=== PATIENT | male | born 1955 | race Caucasian/White ===

== ENCOUNTER 2023-05-16 08:29 | Inpatient (IN) | payer MEDICARE ==
[2023-05-16] MEDS ORDERED: Zofran 4 MG/2 ML VIAL IV ONE (08:56)
[2023-05-16] MEDS ORDERED: Zofran 4 MG/2 ML VIAL ONE (09:04)
[2023-05-16 09:05] LABS: Absolute Neutrophil Ct (ANC) 12.59 x10^3/uL (1.4-6.9); BASOPHIL % 0.2 % (0.0-0.4); Basophil (Absolute #) 0.03 x10^3/uL (0-0.4); Eosinophil (Absolute #) 0 x10^3/uL (0-0.5); Hematocrit 47.5 % (42-50); Hemoglobin 16.1 g/dL (12.5-18.0); IMMATURE GRAN # 0.06 x10^3u/L (0.00-0.03); IMMATURE GRAN % 0.4 % (0.00-0.4); Lymphocyte (Absolute #) 0.76 x10^3/uL (1.0-4.6); Lymphocytes % 5.3 % (24.0-44.0); Mean Cell Volume 90.5 fL (78-100); Mean Corpuscular Hemoglobin 30.7 pg (26-32); Mean Corpuscular Hgb Concent. 33.9 g/dL (32-36); Mean Platelet Volume 10.3 fL (7.5-11.0); Monocyte (Absolute #) 0.83 x10^3/uL (0.0-1.3); Monocytes % 5.8 % (0.0-12.0); Neutrophil % 88.3 % (36.0-66.0); Platelet Count 154 x10^3/uL (150-450); Red Blood Count 5.25 x10^6/uL (4.1-5.6); Red Cell Distribution Width 12.8 % (11.5-14.0); White Blood Count 14.3 x10^3/uL (4.0-10.5)
[2023-05-16] MEDS ORDERED: SUBLIMAZE 100 MCG/2 ML IV ONE ×2 (09:13→10:56)
[2023-05-16 09:18] LABS: Appearance Cloudy (Clear); Bacteria None Seen /HPF (None Seen); Bilirubin Negative (Negative); Blood Negative (Negative); Epithelial Cells None Seen /HPF (None Seen); Glucose, Urine Negative (Negative); Hyaline Casts NONE SEEN /LPF (0-2); Ketones 15 (Negative); Leukocyte Esterase Negative (Negative); Nitrite Negative (Negative); Ph 7.5 (4.6-8.0); Protein,Urine Dip Trace (Negative); RBC 0-2 /HPF (0-5); WBC 0-2 /HPF (0-5)
[2023-05-16 09:21] LABS: ADD URINE CULTURE? NO (NO)
[2023-05-16 09:26] LABS: INR 0.97 (0.8-3.0); PROTIME 10.6 SECONDS (9.4-12.5); PTT 24.8 SECONDS (25.1-36.5)
[2023-05-16] MEDS ORDERED: SUBLIMAZE 100 MCG/2 ML ONE ×2 (09:29→11:21)
[2023-05-16 09:33] LABS: ALBUMIN 4.6 g/dL (3.5-5.0); ALKALINE PHOSPHATASE 53 U/L (38-126); AMYLASE 67 U/L (30-110); ANION GAP 15.2 MEQ/L (5-15); BLOOD UREA NITROGEN 14 mg/dL (9-20); CHLORIDE 101 mmol/L (98-107); Calcium 8.8 mg/dL (8.4-10.2); Carbon Dioxide 23 mmol/L (22-30); Creatinine 1 0.68 mg/dL (0.66-1.25); EST GLOMERULAR FILTRATION RATE > 60.0 ML/MIN; Glucose 138 mg/dL (74-106); LIPASE 35 U/L (23-300); NT PRO BNPII 1230 pg/mL (<300); Potassium 4.5 mmol/L (3.5-5.1); SGOT/AST 43 U/L (17-59); SGPT/ALT 31 U/L (0-50); SODIUM 135 mmol/L (137-145); Total Protein 7.6 g/dL (6.3-8.2)
--- NOTE | 2023-05-16 09:52 | ERPHSYRPT ---
- History of Present Illness Historian: patient, other () Patient Subjective Stated Complaint: pt reports abdominal pain beginning last evening, states pain radiates to his chest/epigastric region. pt reports vomitting as well Triage Nursing Assessment: pt is aox3, pt vomiting upon exam, emesis appears bilious in nature, bright yellow/green, pt afebrile, resps easy and non labored, cap refill < 3 seconds, pt radial pulses strong and equal, pt abd slightly distended, tenderness with palpation to the RUQ, bowel sounds present and normoactive x4, pt skin pink warm dry. Physician History: 67 yo WM w sub-sternal chest pain which developed into RUQ pain starting at 19:30 last night. Pain is sharp, 9 out of 10, and nothing makes better/worse. Pt has had nausea/vomiting/diaphoresis but denies dyspnea/current chest pain/diarrhea/melena/hematochezia. He has never had this pain before. Pt has a h/o hypothyroidism but denies OR/CAD/HTN/hyperlipidemia/tobacco use. Timing/Duration: other (1930) Quality: sharpness Abdominal Pain Onset Location: RUQ Pain Radiation: no radiation Modifying Factors: Improves With: nothing Associated Symptoms: diaphoresis, nausea Previous symptoms: no prior history Allergies/Adverse Reactions: No Known Drug Allergies Allergy (Verified 05/16/23 09:22) Home Medications: Aspirin EC 81 mg [Ecotrin 81 mg] 81 mg PO DAILY 12/02/21 [History] Levothyroxine Sodium 50 Mcg [Synthroid 50 Mcg] 50 mcg PO DAILY 12/02/21 [History] Tizanidine HCl 4 mg [Zanaflex 4 MG] 4 mg PO DAILY PRN 12/02/21 [History] Hx Tetanus, Diphtheria Vaccination/Date Given: (unk) Hx Influenza Vaccination/Date Given: No Hx Pneumococcal Vaccination/Date Given: No Immunizations Up to Date: No Travel Risk - International Travel Have you traveled outside of the country in past 3 weeks: No - Coronavirus Screening Are you exhibiting any of the following symptoms?: No Close contact with a COVID-19 positive Pt in past 14-21 Days: No - Vaccine Status Have you recieved a Covid-19 vaccination: No - Review of Systems Constitutional: No Symptoms Eyes: No Symptoms Ears, Nose, & Throat: No Symptoms Respiratory: No Symptoms Cardiac: No Symptoms, Chest Pain Abdominal/Gastrointestinal: No Symptoms, Abdominal Pain, Nausea Genitourinary Symptoms: No Symptoms Musculoskeletal: No Symptoms Skin: No Symptoms Neurological: No Symptoms Psychological: No Symptoms Endocrine: No Symptoms Hematologic/Lymphatic: No Symptoms Immunological/Allergic: No Symptoms - Past Medical History Pertinent Past Medical History: Yes Neurological History: No Pertinent History ENT History: No Pertinent History Cardiac History: Deep Vein Thrombosis Respiratory History: No Pertinent History Endocrine Medical History: Hypothyroidism Musculoskeletal History: No Pertinent History GI Medical History: GERD History: No Pertinent History Psycho-Social History: No Pertinent History Male Reproductive Disorders: No Pertinent History Other Medical History: allergies, - Past Surgical History Past Surgical History: Yes Neuro Surgical History: No Pertinent History Cardiac: No Pertinent History Respiratory: No Pertinent History Gastrointestinal: No Pertinent History Genitourinary: No Pertinent History Musculoskeletal: No Pertinent History Male Surgical History: No Pertinent History Other Surgical History: colonoscopy. elbow surgery - Social History Smoking Status: Never smoker Drug Use: none Patient Lives Alone: No - Nursing Vital Signs Nursing Vital Signs: Initial Vital Signs Temperature 98.6 F 05/16/23 09:11 Pulse Rate 72 05/16/23 09:11 Respiratory Rate 18 05/16/23 09:11 Blood Pressure 147/76 05/16/23 09:11 O2 Sat by Pulse Oximetry 97 05/16/23 09:11 Pain Scale Pain Intensity 2 Hypertensive - Physical Exam General Appearance: mild distress (Due to pain) Eye Exam: PERRL/EOMI, eyes nml inspection Ears, Nose, Throat Exam: normal ENT inspection, TMs normal, pharynx normal, moist mucous membranes Neck Exam: normal inspection, non-tender, supple, full range of motion, No meningismus, No mass, No Brudzinski, No Kernig's, No carotid bruit Respiratory Exam: normal breath sounds, lungs clear, airway intact Cardiovascular Exam: regular rate/rhythm, normal heart sounds, normal peripheral pulses, capillary refill <2 sec, No murmur Gastrointestinal/Abdomen Exam: soft, normal bowel sounds, tenderness (Marked RUQ TTP wo guarding or rebound) Back Exam: normal inspection, normal range of motion, No CVA tenderness Extremity Exam: normal inspection, normal range of motion Neurologic Exam: alert, oriented x 3, cooperative, regulatory leader II-XII nml as tested, normal mood/affect, nml cerebellar function, nml station & gait, sensation nml Skin Exam: normal color, warm, dry Lymphatic Exam: No adenopathy SpO2 Interpretation: normal SpO2: 97 O2 Delivery: Room Air - Course Nursing assessment & vital signs reviewed: Yes EKG Interpreted by Me: RATE (NSR/Rate 73/Borderline prolonged Qtc/No acute ST segment changes) - Radiology Exams Chest X-ray Interpretation: Interpreted by me (NAD) - CT Exams Abdomen/Pelvis CT Interpretation: Tele-radiologist Report (Distended gallbladder/KOHLI) Ordered Tests: Active Orders 24 hr Category Date Time Status EKG-ER Only STAT Care 05/16/23 08:51 Completed IV Insertion STAT Care 05/16/23 13:46 Completed NPO Diet 05/16/23 13:30 Active ABDOMEN AND PELVIS W CONTRAST [CT] Stat Exams 05/16/23 10:45 Completed CHEST 1 VIEW (PORTABLE) Stat Exams 05/16/23 08:51 Taken AMYLASE Stat Lab 05/16/23 09:04 Completed CBC W DIFF Stat Lab 05/16/23 09:04 Completed CMP Stat Lab 05/16/23 09:04 Completed Direct Bilirubin Routine Lab 05/16/23 09:00 Completed LIPASE Stat Lab 05/16/23 09:04 Completed Lactic Acid Stat Lab 05/16/23 09:14 Completed NT PRO BNPII Stat Lab 05/16/23 09:04 Completed PROTIME WITH INR Stat Lab 05/16/23 09:04 Completed PTT Stat Lab 05/16/23 09:04 Completed TROPONIN Q4H Lab 05/16/23 09:04 Completed TROPONIN Q4H Lab 05/16/23 13:11 Completed TROPONIN Q4H Lab 05/16/23 17:14 Completed UA W/RFX UR CULTURE Stat Lab 05/16/23 09:04 Completed Transfer Order Routine Transfer 05/16/23 Completed Medication Summary Generic Name Dose Route Start Last Admin Trade Name Freq PRN Reason Stop Dose Admin Aspirin 81 mg 05/17/23 10:00 Aspirin 81 Mg Tablet.Ec PO 06/16/23 09:59 DAILY NAM Docusate Sodium 100 mg 05/16/23 15:08 05/16/23 16:15 Docusate Sodium 100 Mg Capsule PO 06/15/23 15:07 100 mg BIDPRN PRN Administration CONSTIPATION Piperacillin Sod/Tazobactam 100 mls @ 200 mls/hr 05/16/23 18:00 05/16/23 18:07 Sod 3.375 gm/ Sodium Chloride IV 05/19/23 17:59 200 mls/hr Q6HT NAM Administration Sodium Chloride 1,000 mls @ 100 mls/hr 05/16/23 17:00 05/16/23 16:56 Sodium Chloride 0.9% 1000 Ml IV 06/15/23 16:59 100 mls/hr .Q10H NAM Administration Levothyroxine Sodium 50 mcg 05/17/23 10:00 Levothyroxine Sodium 50 Mcg Tablet PO 06/16/23 09:59 DAILY NAM Morphine Sulfate 2 mg 05/16/23 14:30 05/16/23 16:15 Morphine Sulfate 2 Mg/Ml Inj IV 05/21/23 14:29 2 mg Q4H PRN PRN Administration PAIN Morphine Sulfate 4 mg 05/16/23 18:16 05/16/23 18:18 Morphine Sulfate 4 Mg/Ml Injection IV 05/21/23 18:15 4 mg Q3H PRN Administration PAIN Ondansetron HCl 4 mg 05/16/23 14:30 Ondansetron Hcl 4 Mg/2 Ml Vial IV 06/15/23 14:29 Q6H PRN PRN NAUSEA/VOMITING Tizanidine HCl 4 mg 05/16/23 14:55 Tizanidine Hcl 4 Mg Tablet PO 06/15/23 14:54 QDP PRN MUSCLE SPASMS Discontinued Medications Generic Name Dose Route Start Last Admin Trade Name Freq PRN Reason Stop Dose Admin Fentanyl Citrate 25 mcg 05/16/23 09:13 05/16/23 09:30 Fentanyl Citrate 100 Mcg/2 Ml* Vial IV 05/16/23 09:14 25 mcg STAT ONE Administration Fentanyl Citrate Confirm 05/16/23 09:29 Fentanyl Citrate 100 Mcg/2 Ml* Vial Administered 05/16/23 09:30 Dose 100 mcg .ROUTE .STK-MED ONE Fentanyl Citrate 50 mcg 05/16/23 10:56 05/16/23 11:22 Fentanyl Citrate 100 Mcg/2 Ml* Vial IV 05/16/23 10:57 50 mcg STAT ONE Administration Fentanyl Citrate Confirm 05/16/23 11:21 Fentanyl Citrate 100 Mcg/2 Ml* Vial Administered 05/16/23 11:22 Dose 100 mcg .ROUTE .STK-MED ONE Hydromorphone HCl 1 mg 05/16/23 13:28 05/16/23 13:31 Hydromorphone 1 Mg/1ml Inj IV 05/16/23 13:29 1 mg STAT ONE Administration Hydromorphone HCl Confirm 05/16/23 13:30 Hydromorphone 1 Mg/1ml Inj Administered 05/16/23 13:31 Dose 1 mg .ROUTE .STK-MED ONE Cefoxitin Sodium 1 g in 50 mls @ 100 mls/hr 05/16/23 13:27 05/16/23 13:54 Mefoxin 1 Gm/ D5w 50 Ml IV 05/16/23 13:56 100 ml/hr STAT STA 100 mls/hr Administration Ondansetron HCl 4 mg 05/16/23 08:56 05/16/23 09:30 Ondansetron Hcl 4 Mg/2 Ml Vial IV 05/16/23 08:57 4 mg STAT ONE Administration Ondansetron HCl Confirm 05/16/23 09:04 Ondansetron Hcl 4 Mg/2 Ml Vial Administered 05/16/23 09:05 Dose 4 mg .ROUTE .STK-MED ONE Lab/Rad Data: Laboratory Result Diagrams 05/16/23 09:04 05/16/23 09:04 Laboratory Results 05/16/23 05/16/23 05/16/23 Range/Units 13:11 13:00 09:14 WBC (4.0-10.5) x10^3/uL RBC (4.1-5.6) x10^6/uL Hgb (12.5-18.0) g/dL Hct (42-50) % MCV (78-100) fL MCH (26-32) pg MCHC (32-36) g/dL RDW (11.5-14.0) % Plt Count (150-450) x10^3/uL MPV (7.5-11.0) fL Gran % (36.0-66.0) % Immature Gran % (Auto) (0.00-0.4) % Nucleat RBC Rel Count (0.00-0.1) % Eos # (Auto) (0-0.5) x10^3/uL Immature Gran # (Auto) (0.00-0.03) x10^3u/L Absolute Lymphs (auto) (1.0-4.6) x10^3/uL Absolute Monos (auto) (0.0-1.3) x10^3/uL Absolute Nucleated RBC (0.00-0.01) x10^3u/L Lymphocytes % (24.0-44.0) % Monocytes % (0.0-12.0) % Eosinophils % (0.00-5.0) % Basophils % (0.0-0.4) % Absolute Granulocytes (1.4-6.9) x10^3/uL Basophils # (0-0.4) x10^3/uL PT (9.4-12.5) SECONDS INR (0.8-3.0) APTT (25.1-36.5) SECONDS Sodium (137-145) mmol/L Potassium (3.5-5.1) mmol/L Chloride (98-107) mmol/L Carbon Dioxide (22-30) mmol/L Anion Gap (5-15) MEQ/L BUN (9-20) mg/dL Creatinine (0.66-1.25) mg/dL Estimated GFR ML/MIN Glucose (74-106) mg/dL Lactic Acid 1.6 (0.4-2.0) Calcium (8.4-10.2) mg/dL Total Bilirubin (0.2-1.3) mg/dL Direct Bilirubin (0.0-0.4) mg/dL AST (17-59) U/L ALT (0-50) U/L Alkaline Phosphatase (38-126) U/L Troponin I < 0.012 (0.000-0.034) ng/mL NT-Pro-B Natriuret Pep (<300) pg/mL Serum Total Protein (6.3-8.2) g/dL Albumin (3.5-5.0) g/dL Amylase (30-110) U/L Lipase (23-300) U/L Procalcitonin 0.260 H (0.030-0.080) ng/mL Urine Color (Yellow) Urine Appearance (Clear) Urine pH (4.6-8.0) Ur Specific [place] (1.005-1.030) Urine Protein (Negative) Urine Glucose (UA) (Negative) mg/dL Urine Ketones (Negative) Urine Blood (Negative) Urine Nitrite (Negative) Urine Bilirubin (Negative) Urine Urobilinogen (0.2) mg/dL Ur Leukocyte Esterase (Negative) U Hyaline Cast (Auto) (0-2) /LPF Urine Microscopic RBC (0-5) /HPF Urine Microscopic WBC (0-5) /HPF Ur Epithelial Cells (None Seen) /HPF Urine Bacteria (None Seen) /HPF Urine Culture Reflexed (NO) 05/16/23 05/16/23 05/16/23 Range/Units 09:04 09:04 09:04 WBC (4.0-10.5) x10^3/uL RBC (4.1-5.6) x10^6/uL Hgb (12.5-18.0) g/dL Hct (42-50) % MCV (78-100) fL MCH (26-32) pg MCHC (32-36) g/dL RDW (11.5-14.0) % Plt Count (150-450) x10^3/uL MPV (7.5-11.0) fL Gran % (36.0-66.0) % Immature Gran % (Auto) (0.00-0.4) % Nucleat RBC Rel Count (0.00-0.1) % Eos # (Auto) (0-0.5) x10^3/uL Immature Gran # (Auto) (0.00-0.03) x10^3u/L Absolute Lymphs (auto) (1.0-4.6) x10^3/uL Absolute Monos (auto) (0.0-1.3) x10^3/uL Absolute Nucleated RBC (0.00-0.01) x10^3u/L Lymphocytes % (24.0-44.0) % Monocytes % (0.0-12.0) % Eosinophils % (0.00-5.0) % Basophils % (0.0-0.4) % Absolute Granulocytes (1.4-6.9) x10^3/uL Basophils # (0-0.4) x10^3/uL PT 10.6 (9.4-12.5) SECONDS INR 0.97 (0.8-3.0) APTT 24.8 L (25.1-36.5) SECONDS Sodium 135 L (137-145) mmol/L Potassium 4.5 (3.5-5.1) mmol/L Chloride 101 (98-107) mmol/L Carbon Dioxide 23 (22-30) mmol/L Anion Gap 15.2 H (5-15) MEQ/L BUN 14 (9-20) mg/dL Creatinine 0.68 (0.66-1.25) mg/dL Estimated GFR > 60.0 ML/MIN Glucose 138 H (74-106) mg/dL Lactic Acid (0.4-2.0) Calcium 8.8 (8.4-10.2) mg/dL Total Bilirubin 4.20 H (0.2-1.3) mg/dL Direct Bilirubin (0.0-0.4) mg/dL AST 43 (17-59) U/L ALT 31 (0-50) U/L Alkaline Phosphatase 53 (38-126) U/L Troponin I < 0.012 (0.000-0.034) ng/mL NT-Pro-B Natriuret Pep 1230 (<300) pg/mL Serum Total Protein 7.6 (6.3-8.2) g/dL Albumin 4.6 (3.5-5.0) g/dL Amylase 67 (30-110) U/L Lipase 35 (23-300) U/L Procalcitonin (0.030-0.080) ng/mL Urine Color (Yellow) Urine Appearance (Clear) Urine pH (4.6-8.0) Ur Specific [place] (1.005-1.030) Urine Protein (Negative) Urine Glucose (UA) (Negative) mg/dL Urine Ketones (Negative) Urine Blood (Negative) Urine Nitrite (Negative) Urine Bilirubin (Negative) Urine Urobilinogen (0.2) mg/dL Ur Leukocyte Esterase (Negative) U Hyaline Cast (Auto) (0-2) /LPF Urine Microscopic RBC (0-5) /HPF Urine Microscopic WBC (0-5) /HPF Ur Epithelial Cells (None Seen) /HPF Urine Bacteria (None Seen) /HPF Urine Culture Reflexed (NO) 05/16/23 05/16/23 05/16/23 Range/Units 09:04 09:04 09:00 WBC 14.3 H (4.0-10.5) x10^3/uL RBC 5.25 (4.1-5.6) x10^6/uL Hgb 16.1 (12.5-18.0) g/dL Hct 47.5 (42-50) % MCV 90.5 (78-100) fL MCH 30.7 (26-32) pg MCHC 33.9 (32-36) g/dL RDW 12.8 (11.5-14.0) % Plt Count 154 (150-450) x10^3/uL MPV 10.3 (7.5-11.0) fL Gran % 88.3 H (36.0-66.0) % Immature Gran % (Auto) 0.4 (0.00-0.4) % Nucleat RBC Rel Count 0.0 (0.00-0.1) % Eos # (Auto) 0 (0-0.5) x10^3/uL Immature Gran # (Auto) 0.06 H (0.00-0.03) x10^3u/L Absolute Lymphs (auto) 0.76 L (1.0-4.6) x10^3/uL Absolute Monos (auto) 0.83 (0.0-1.3) x10^3/uL Absolute Nucleated RBC 0.00 (0.00-0.01) x10^3u/L Lymphocytes % 5.3 L (24.0-44.0) % Monocytes % 5.8 (0.0-12.0) % Eosinophils % 0.0 (0.00-5.0) % Basophils % 0.2 (0.0-0.4) % Absolute Granulocytes 12.59 H (1.4-6.9) x10^3/uL Basophils # 0.03 (0-0.4) x10^3/uL PT (9.4-12.5) SECONDS INR (0.8-3.0) APTT (25.1-36.5) SECONDS Sodium (137-145) mmol/L Potassium (3.5-5.1) mmol/L Chloride (98-107) mmol/L Carbon Dioxide (22-30) mmol/L Anion Gap (5-15) MEQ/L BUN (9-20) mg/dL Creatinine (0.66-1.25) mg/dL Estimated GFR ML/MIN Glucose (74-106) mg/dL Lactic Acid (0.4-2.0) Calcium (8.4-10.2) mg/dL Total Bilirubin (0.2-1.3) mg/dL Direct Bilirubin 0.3 (0.0-0.4) mg/dL AST (17-59) U/L ALT (0-50) U/L Alkaline Phosphatase (38-126) U/L Troponin I (0.000-0.034) ng/mL NT-Pro-B Natriuret Pep (<300) pg/mL Serum Total Protein (6.3-8.2) g/dL Albumin (3.5-5.0) g/dL Amylase (30-110) U/L Lipase (23-300) U/L Procalcitonin (0.030-0.080) ng/mL Urine Color Yellow (Yellow) Urine Appearance Cloudy A (Clear) Urine pH 7.5 (4.6-8.0) Ur Specific [place] 1.020 (1.005-1.030) Urine Protein Trace A (Negative) Urine Glucose (UA) Negative (Negative) mg/dL Urine Ketones 15 A (Negative) Urine Blood Negative (Negative) Urine Nitrite Negative (Negative) Urine Bilirubin Negative (Negative) Urine Urobilinogen 1.0 A (0.2) mg/dL Ur Leukocyte Esterase Negative (Negative) U Hyaline Cast (Auto) NONE SEEN (0-2) /LPF Urine Microscopic RBC 0-2 (0-5) /HPF Urine Microscopic WBC 0-2 (0-5) /HPF Ur Epithelial Cells None Seen (None Seen) /HPF Urine Bacteria None Seen (None Seen) /HPF Urine Culture Reflexed NO (NO) - Progress Progress: improved Progress Note: 05/16/23 13:[address] Lundberg 05/16/23 19:29 Nursing note and vital signs reviewed No food or housing insecurities noted All labs reviewed and shared w pt CXR result reviewed and shared w pt CT result reviewed and shared w pt 05/16/23 19:32 Fentanyl 25mcg/4mg IV Zofran w improvement in pain Fentanyl 50mcg IV repeat for pain 1mg IV dilaudid 1gm IV Mefoxin before admit 05/16/23 19:34 Pt is a full code Discussed with : Other (Dr. Lundberg) Counseled pt/family regarding: lab results, diagnosis, rad results Medical Desision Making - Independent Historian Additional History obtained from: Spouse - Discussion of managment Care discussed with:: hospitalist Reviewed:: Test results, Need for additional workup Agreed on:: place in obs Will see patient: in hospital - Diagnostic Testing Radiological Interpretation: Reviewed by me, Teleradiologist Report - Risk of complications The pt has a high risk of morbidity or mortality based on: Drug therapy requiring intensive monitoring for toxicity - Departure Departure Disposition: Observation Clinical Impression: Abdominal pain Condition: Stable Critical Care Time: No
--- NOTE | 2023-05-16 13:15 | XRAY ---
CLINICAL HISTORY:RUQ pain COMPARISON:None TECHNIQUE:Multiplanar contrast enhanced CT study of the abdomen and pelvis performed. CTDI 11, DLP 674.95. FINDINGS: Mixed type III hiatus hernia noted. Coarse reticular markings seen at both lung bases posteriorly with few tiny calcific nodules at left lung base suggest mild fibrotic changes, clinical correlation advised. No pleural effusion seen. Abdomen: Mild low attenuation of the liver parenchyma suggest mild fatty infiltration. The liver is normal in size. No focal parenchymal abnormality. The portal vein, intrahepatic biliary radicals and the bile ducts are normal. Fatty replacement of the pancreas noted, otherwise unremarkable. Tiny 1 cmfat attenuated area noted involving the lateral limb of right adrenal gland, incidental benign looking lesion likely adrenal myelolipoma. Left adrenal gland is unremarkable. The spleen is unremarkable except a splenunculus adjacent to its lower pole (variant). The kidneys are unremarkable. They are normal in size and shape. No calculi or hydronephrosis. Tiny 0.3 cm simple right mid pole cortical cyst noted (bosniak type I) Minimal perinephric fat stranding noted non specific change. Gall bladder is borderline distended with no pericholecystic fluid, edema or wall thickening, no intraluminal high density stone seen, the appearance may be due to prolonged fasting, if concern for acalcular cholecystitis persist, post prandial followup ultrasound will help in further evaluation. Incidentally a medial diveritculum of 2 cm size noted along the gastroduodenal / first first of duodenum. Otherwise stomach and small bowel loops appear unremarkable and mainly collapsed. Numeous non-complicated sigmoid diverticulosis without diverticulitis. There is mild prominence of ascending and tranverse colon calibre upto 4 cm this is within normal limits however trasition seen at splenic flexure, needs clinical correlation to exclude developing psuedoobstruction or oglive syndrome. There is no evidence of significant enlargement of the mesenteric or retroperitoneal lymph nodes. The rectosigmoid colon is unremarkable. 2.9 x 2.1cm diverticulum is seen along the right lateral wall of urinary bladder. No complications seen. The pelvic vasculature is unremarkable. No evidence of pelvic lymphadenopathy. Few prominent inguinal lymph nodes noted bilaterally, largest on left side measuring 1 cm, clinical correlation and follow up advised. The osseous structures show osteoarthritis bilateral hip joints, spondylodegenerative changes and mild osteopenia. IMPRESSION: 1. Mixed type III hiatus hernia noted. 2. Fatty liver disease and small right adrenal myelolipoma. 3. Small duodenal diverticulum, sigmoid diverticulosis without diverticulitis, needs clinical correlation and follow up. 4. Tiny right renal cyst. 5. Gall bladder is borderline distended with no pericholecystic fluid, edema or wall thickening, no intraluminal high density stone seen, the appearance may be due to prolonged fasting, if concern for acalcular cholecystitis persist, post prandial followup ultrasound will help in further evaluation. 6. Urinary bladder diverticulum. Electronically Signed by: Maikel Paiz MD. (05/16/2023 12:15:00 [employer])
[2023-05-16] MEDS ORDERED: MEFOXIN 1 Gm/ D5W 50 Ml** 1 G/50 ML ML IV STA (13:27)
[2023-05-16] MEDS ORDERED: Hydromorphone 1 mg/ml Injection IV ONE (13:28)
[2023-05-16] MEDS ORDERED: Hydromorphone 1 mg/ml Injection ONE (13:30)
--- NOTE | 2023-05-16 13:35 | PCM.HP ---
History of Present Illness - Chief Complaint Chief Complaint: abdominal pain Date: 05/16/23 History of Present Illness: is a 67 year old male with hx of hypothyroidism and fatty liver disease. Pt came in to the ER with sub-sternal chest pain which developed into RUQ pain starting at 19:30 last night. He was bailing hay at the time. Pain is sharp, 9 out of 10, and nothing makes better/worse. Pt has had nausea/vomiting/diaphoresis but denies dyspnea/current chest pain/diarrhea/melena/hematochezia. He reports having this type of pain before and it was associated with his fatty liver and he was able to resolve this with diet. CT reviewed and holly order US for further evaluation with possible surgical consult. Pt reports last eating last night. He has not had a BM in 2 days and this is a concern as well for him. - Review of Systems Constitutional: No Fever, No Chills Eyes: No Symptoms Ears, Nose, & Throat: No Symptoms Respiratory: No Cough, No Short Of Breath Cardiac: No Chest Pain, No Edema, No Syncope Abdominal/Gastrointestinal: Abdominal Pain (RUQ), Constipation, No Nausea, No Vo miting, No Diarrhea Genitourinary Symptoms: No Dysuria Musculoskeletal: No Back Pain, No Neck Pain Skin: No Rash Neurological: No Dizziness, No Focal Weakness, No Sensory Changes Psychological: No Symptoms Endocrine: No Symptoms Hematologic/Lymphatic: No Symptoms Immunological/Allergic: No Symptoms Medications & Allergies Home Medications: Home Medication List Aspirin EC 81 mg [Ecotrin 81 mg] 81 mg PO DAILY 12/02/21 [History Confirmed 05/16/23] Levothyroxine Sodium 50 Mcg [Synthroid 50 Mcg] 50 mcg PO DAILY 12/02/21 [History Confirmed 05/16/23] Tizanidine HCl 4 mg [Zanaflex 4 MG] 4 mg PO DAILY PRN 12/02/21 [History Confirmed 05/16/23] Allergies/Adverse Reactions: Allergies Allergy/AdvReac Type Severity Reaction Status Date / Time No Known Drug Allergies Allergy Verified 05/16/23 09:22 - Past Medical History Past Medical History: Yes Neurological History: No Pertinent History ENT History: No Pertinent History Cardiac History: Deep Vein Thrombosis Respiratory History: No Pertinent History Endocrine Medical History: Hypothyroidism Musculoskelatal History: No Pertinent History GI Medical History: GERD History: No Pertinent History Pyscho-Social History: No Pertinent History Male Reproductive Disorders: No Pertinent History Comment: allergies, - Past Surgical History Past Surgical History: Yes Neuro Surgical History: No Pertinent History Cardiac History: No Pertinent History Respiratory Surgery: No Pertinent History GI Surgical History: No Pertinent History Genitourinary Surgical Hx: No Pertinent History Musculskeletal Surgical Hx: No Pertinent History Male Surgical History: No Pertinent History Other Surgical History: colonoscopy. elbow surgery - Social History Smoking Status: Never smoker Alcohol: None Drug Use: none - Physical Exam Vital Signs: Vital Signs - 24 hr Temp Pulse Resp BP BP Pulse Ox 05/16/23 13:31 97 05/16/23 12:00 80 16 137/67 98 05/16/23 10:00 131/72 92 L 05/16/23 09:14 147/76 92 L 05/16/23 09:11 98.6 F 72 18 147/76 97 General Appearance: no apparent distress, alert Neurologic Exam: alert, oriented x 3, cooperative, normal mood/affect, nml cerebellar function, nml station & gait, sensation nml, No motor deficits Eye Exam: PERRL/EOMI, eyes nml inspection Ears, Nose, Throat Exam: normal ENT inspection, TMs normal, pharynx normal, moist mucous membranes Neck Exam: normal inspection, non-tender, supple, full range of motion Respiratory Exam: normal breath sounds, lungs clear, No respiratory distress Cardiovascular Exam: regular rate/rhythm, normal heart sounds, normal peripheral pulses Gastrointestinal/Abdomen Exam: soft, normal bowel sounds, tenderness (RUQ with palpation), No mass Back Exam: normal inspection, normal range of motion, No CVA tenderness, No vertebral tenderness Extremity Exam: normal inspection, normal range of motion, pelvis stable Skin Exam: normal color, warm, dry, No rash Lymphatic Exam: No adenopathy Results - Labs Lab/Micro Results: Lab Results-Last 24 Hours 05/16/23 05/16/23 05/16/23 Range/Units 09:04 09:04 09:04 WBC 14.3 H (4.0-10.5) x10^3/uL RBC 5.25 (4.1-5.6) x10^6/uL Hgb 16.1 (12.5-18.0) g/dL Hct 47.5 (42-50) % MCV 90.5 (78-100) fL MCH 30.7 (26-32) pg MCHC 33.9 (32-36) g/dL RDW 12.8 (11.5-14.0) % Plt Count 154 (150-450) x10^3/uL MPV 10.3 (7.5-11.0) fL Gran % 88.3 H (36.0-66.0) % Immature Gran % (Auto) 0.4 (0.00-0.4) % Nucleat RBC Rel Count 0.0 (0.00-0.1) % Eos # (Auto) 0 (0-0.5) x10^3/uL Immature Gran # (Auto) 0.06 H (0.00-0.03) x10^3u/L Absolute Lymphs (auto) 0.76 L (1.0-4.6) x10^3/uL Absolute Monos (auto) 0.83 (0.0-1.3) x10^3/uL Absolute Nucleated RBC 0.00 (0.00-0.01) x10^3u/L Lymphocytes % 5.3 L (24.0-44.0) % Monocytes % 5.8 (0.0-12.0) % Eosinophils % 0.0 (0.00-5.0) % Basophils % 0.2 (0.0-0.4) % Absolute Granulocytes 12.59 H (1.4-6.9) x10^3/uL Basophils # 0.03 (0-0.4) x10^3/uL PT (9.4-12.5) SECONDS INR (0.8-3.0) APTT (25.1-36.5) SECONDS Sodium 135 L (137-145) mmol/L Potassium 4.5 (3.5-5.1) mmol/L Chloride 101 (98-107) mmol/L Carbon Dioxide 23 (22-30) mmol/L Anion Gap 15.2 H (5-15) MEQ/L BUN 14 (9-20) mg/dL Creatinine 0.68 (0.66-1.25) mg/dL Estimated GFR > 60.0 ML/MIN Glucose 138 H (74-106) mg/dL Lactic Acid (0.4-2.0) Calcium 8.8 (8.4-10.2) mg/dL Total Bilirubin 4.20 H (0.2-1.3) mg/dL AST 43 (17-59) U/L ALT 31 (0-50) U/L Alkaline Phosphatase 53 (38-126) U/L Troponin I (0.000-0.034) ng/mL NT-Pro-B Natriuret Pep 1230 (<300) pg/mL Serum Total Protein 7.6 (6.3-8.2) g/dL Albumin 4.6 (3.5-5.0) g/dL Amylase 67 (30-110) U/L Lipase 35 (23-300) U/L Urine Color Yellow (Yellow) Urine Appearance Cloudy A (Clear) Urine pH 7.5 (4.6-8.0) Ur Specific [place] 1.020 (1.005-1.030) Urine Protein Trace A (Negative) Urine Glucose (UA) Negative (Negative) mg/dL Urine Ketones 15 A (Negative) Urine Blood Negative (Negative) Urine Nitrite Negative (Negative) Urine Bilirubin Negative (Negative) Urine Urobilinogen 1.0 A (0.2) mg/dL Ur Leukocyte Esterase Negative (Negative) U Hyaline Cast (Auto) NONE SEEN (0-2) /LPF Urine Microscopic RBC 0-2 (0-5) /HPF Urine Microscopic WBC 0-2 (0-5) /HPF Ur Epithelial Cells None Seen (None Seen) /HPF Urine Bacteria None Seen (None Seen) /HPF Urine Culture Reflexed NO (NO) 05/16/23 05/16/23 05/16/23 Range/Units 09:04 09:04 09:14 WBC (4.0-10.5) x10^3/uL RBC (4.1-5.6) x10^6/uL Hgb (12.5-18.0) g/dL Hct (42-50) % MCV (78-100) fL MCH (26-32) pg MCHC (32-36) g/dL RDW (11.5-14.0) % Plt Count (150-450) x10^3/uL MPV (7.5-11.0) fL Gran % (36.0-66.0) % Immature Gran % (Auto) (0.00-0.4) % Nucleat RBC Rel Count (0.00-0.1) % Eos # (Auto) (0-0.5) x10^3/uL Immature Gran # (Auto) (0.00-0.03) x10^3u/L Absolute Lymphs (auto) (1.0-4.6) x10^3/uL Absolute Monos (auto) (0.0-1.3) x10^3/uL Absolute Nucleated RBC (0.00-0.01) x10^3u/L Lymphocytes % (24.0-44.0) % Monocytes % (0.0-12.0) % Eosinophils % (0.00-5.0) % Basophils % (0.0-0.4) % Absolute Granulocytes (1.4-6.9) x10^3/uL Basophils # (0-0.4) x10^3/uL PT 10.6 (9.4-12.5) SECONDS INR 0.97 (0.8-3.0) APTT 24.8 L (25.1-36.5) SECONDS Sodium (137-145) mmol/L Potassium (3.5-5.1) mmol/L Chloride (98-107) mmol/L Carbon Dioxide (22-30) mmol/L Anion Gap (5-15) MEQ/L BUN (9-20) mg/dL Creatinine (0.66-1.25) mg/dL Estimated GFR ML/MIN Glucose (74-106) mg/dL Lactic Acid 1.6 (0.4-2.0) Calcium (8.4-10.2) mg/dL Total Bilirubin (0.2-1.3) mg/dL AST (17-59) U/L ALT (0-50) U/L Alkaline Phosphatase (38-126) U/L Troponin I < 0.012 (0.000-0.034) ng/mL NT-Pro-B Natriuret Pep (<300) pg/mL Serum Total Protein (6.3-8.2) g/dL Albumin (3.5-5.0) g/dL Amylase (30-110) U/L Lipase (23-300) U/L Urine Color (Yellow) Urine Appearance (Clear) Urine pH (4.6-8.0) Ur Specific [place] (1.005-1.030) Urine Protein (Negative) Urine Glucose (UA) (Negative) mg/dL Urine Ketones (Negative) Urine Blood (Negative) Urine Nitrite (Negative) Urine Bilirubin (Negative) Urine Urobilinogen (0.2) mg/dL Ur Leukocyte Esterase (Negative) U Hyaline Cast (Auto) (0-2) /LPF Urine Microscopic RBC (0-5) /HPF Urine Microscopic WBC (0-5) /HPF Ur Epithelial Cells (None Seen) /HPF Urine Bacteria (None Seen) /HPF Urine Culture Reflexed (NO) - Radiology Impressions Radiology Exams & Impressions: Radiology Procedures Category Date Time Status ABDOMEN AND PELVIS W CONTRAST [CT] Stat Exams 05/16/23 10:45 Completed CHEST 1 VIEW (PORTABLE) Stat Exams 05/16/23 08:51 Taken Assessment/Plan (1) Abdominal pain Current Visit: Yes Status: Acute Assessment & Plan: - total Bili elevated @ 4.20 - WBC 14.3 - CBC, CMP daily - LA- WNL - LFT- WNL - Blood cultures x2 - PCT - US of liver and gallbladder - NPO - Zosyn 3.375 Q6 - NS @ 100ml/hr - CT abd/ pelvis 05/16: IMPRESSION: 1. Mixed type III hiatus hernia noted. 2. Fatty liver disease and small right adrenal myelolipoma. 3. Small duodenal diverticulum, sigmoid diverticulosis without diverticulitis, needs clinical correlation and follow up. 4. Tiny right renal cyst. 5. Gall bladder is borderline distended with no pericholecystic fluid, edema or wall thickening, no intraluminal high density stone seen, the appearance may be due to prolonged fasting, if concern for acalcular cholecystitis persist, post prandial followup ultrasound will help in further evaluation. 6. Urinary bladder diverticulum. - Needs US for further evaluation - Consider surgical consult Code(s): R10.9 - UNSPECIFIED ABDOMINAL PAIN (2) Chest pain Current Visit: Yes Status: Acute Assessment & Plan: - trop x3 ordered in ER - Trop x2 negative - Chest XR pending - no active CP IP Code(s): R07.9 - CHEST PAIN, UNSPECIFIED (3) Hypothyroidism Current Visit: Yes Status: Chronic Assessment & Plan: - Continue Levothyroxine Code(s): E03.9 - HYPOTHYROIDISM, UNSPECIFIED (4) Nausea & vomiting Current Visit: Yes Status: Acute Assessment & Plan: - PRN N/V meds Code(s): R11.2 - NAUSEA WITH VOMITING, UNSPECIFIED (5) NAFLD (nonalcoholic fatty liver disease) Current Visit: Yes Status: Chronic Assessment & Plan: - known hx - US of liver (6) Constipation Current Visit: Yes Status: Acute Assessment & Plan: - PRN colace VTE: scd's D/c plan: 1-2 days Next of kin: - Lorena [phone] Code(s): K59.00 - CONSTIPATION, UNSPECIFIED
[2023-05-16] MEDS ORDERED: Zanaflex 4 MG PO PRN (14:55)
[2023-05-16] MEDS: MORPHINE SULFATE 2 MG INJ IV PRN ×2 (16:15→23:49)
[2023-05-16] MEDS: Docusate Sodium 100 MG PO PRN (16:15)
[2023-05-16] MEDS: Sodium Chloride 0.9% 1000 ML 1,000 ML IV SCH ×2 (16:56→23:54)
[2023-05-16] MEDS: PIPERACILLIN/TAZOBACTAM 3.375 GM in Sodium Chloride 100ML MINI-BAG PLUS 100 ML IV SCH (18:07)
[2023-05-16] MEDS: MORPHINE SULFATE 4 MG INJ IV PRN (18:18)
--- NOTE | 2023-05-16 20:46 | XRAY ---
Indication: Chest pain. Comparison: September 02, 2021 Portable apical lordotic chest now underinflated crowding both lung bases. No focal infiltrate, consolidation, or large effusion. Heart not enlarged with new small hiatal hernia. Bony thorax intact again with osteopenia and mild degenerative changes.
[2023-05-16] MEDS: Zofran 4 MG/2 ML VIAL IV PRN (23:49)
[2023-05-17] MEDS: PIPERACILLIN/TAZOBACTAM 3.375 GM in Sodium Chloride 100ML MINI-BAG PLUS 100 ML IV SCH ×5 (03:53→23:02)
[2023-05-17] MEDS ORDERED: MORPHINE SULFATE 4 MG INJ ONE (07:10)
[2023-05-17] MEDS: MORPHINE SULFATE 4 MG INJ IV PRN ×4 (07:11→18:24)
[2023-05-17 08:18] LABS: Hematocrit 46.4 % (42-50); Hemoglobin 15.5 g/dL (12.5-18.0); Mean Cell Volume 92.1 fL (78-100); Mean Corpuscular Hemoglobin 30.8 pg (26-32); Mean Corpuscular Hgb Concent. 33.4 g/dL (32-36); Platelet Count 129 x10^3/uL (150-450); Red Blood Count 5.04 x10^6/uL (4.1-5.6); Red Cell Distribution Width 13.3 % (11.5-14.0); White Blood Count 16.1 x10^3/uL (4.0-10.5)
[2023-05-17 08:32] LABS: ALBUMIN 3.8 g/dL (3.5-5.0); ALKALINE PHOSPHATASE 63 U/L (38-126); ANION GAP 11.4 MEQ/L (5-15); BLOOD UREA NITROGEN 13 mg/dL (9-20); CHLORIDE 101 mmol/L (98-107); Calcium 8.2 mg/dL (8.4-10.2); Carbon Dioxide 27 mmol/L (22-30); EST GLOMERULAR FILTRATION RATE > 60.0 ML/MIN; Glucose 142 mg/dL (74-106); Potassium 4.2 mmol/L (3.5-5.1); SGOT/AST 102 U/L (17-59); SGPT/ALT 115 U/L (0-50); SODIUM 135 mmol/L (137-145); Total Protein 6.7 g/dL (6.3-8.2)
[2023-05-17] MEDS: ECOTRIN 81 MG PO SCH (09:14)
[2023-05-17] MEDS: SYNTHROID 50 MCG PO SCH (09:14)
[2023-05-17] MEDS ORDERED: Sodium Chloride 0.9% 1000 ML 1,000 ML IV STA (10:10)
--- NOTE | 2023-05-17 13:19 | PCM.NOTE ---
Date and Time: 05/17/23 1312 Subjective Assessment: is a 67 year old male with hx of hypothyroidism and fatty liver disease. Pt came in to the ER with sub-sternal chest pain which developed into RUQ pain starting at 19:30 on 05/15. He was bailing hay at the time. He continues to have sharp RUQ pain 9 out of 10, and nothing makes better/worse. Pt has had nausea/vomiting/diaphoresis but denies dyspnea/current chest pain/diarrhea/melena/hematochezia. He reports having this type of pain before and it was associated with his fatty liver and he was able to resolve this with diet. CT reviewed and US ordered for further evaluation with possible surgical consult. Stat ordered US was cancelled last night due to not meeting the qualifications of the hospital pocilicy for stat Ultrasounds. Pt will have US Thursday morning. Pt is afebrile but continues to have intermittent severe RUQ pain. WBC is trending up, total and direct bilirubin, as well as AST and ALT are trending up. If sxs worsen we may consider tx to a higher level of care. Will continue to closely watch pt and treat with Zosyn, IV fluids, pain and nausea meds. - Review of Systems Constitutional: No Fever, No Chills Eyes: No Symptoms Ears, Nose, & Throat: No Symptoms Respiratory: No Cough, No Short Of Breath Cardiac: No Chest Pain, No Edema, No Syncope Abdominal/Gastrointestinal: Abdominal Pain (RUQ pain), Nausea, No Vomiting, No Diarrhea Genitourinary Symptoms: No Dysuria Musculoskeletal: No Back Pain, No Neck Pain Skin: No Rash Neurological: No Dizziness, No Focal Weakness, No Sensory Changes Psychological: No Symptoms Endocrine: No Symptoms Hematologic/Lymphatic: No Symptoms Immunological/Allergic: No Symptoms Objective Exam General Appearance: mild distress, alert Neurologic Exam: alert, oriented x 3, cooperative, normal mood/affect, nml cerebellar function, sensation nml, No motor deficits Skin Exam: normal color, warm, dry Eye Exam: PERRL, EOMI, eyes nml inspection Ears, Nose, Throat Exam: normal ENT inspection, pharynx normal, moist mucous membranes Neck Exam: normal inspection, non-tender, supple, full range of motion Respiratory Exam: normal breath sounds, lungs clear, No respiratory distress Cardiovascular Exam: regular rate/rhythm, normal heart sounds Gastrointestinal/Abdomen Exam: soft, tenderness (RUQ), guarding, No mass Extremity Exam: normal inspection, normal range of motion Back Exam: normal inspection, normal range of motion, No CVA tenderness, No vertebral tenderness Male Genitalia Exam: deferred Rectal Exam: deferred OBJECTIVE DATA Vital Signs: Vital Signs - 24 hr Temp Pulse Resp BP Pulse Ox 05/17/23 12:00 99.3 F 112 H 16 126/70 94 L 05/17/23 07:51 93 L 05/17/23 07:37 98.0 F 112 H 16 132/69 92 L 05/17/23 04:00 99.8 F 100 H 18 126/67 92 L 05/16/23 23:43 98.6 F 98 H 18 137/63 92 L 05/16/23 20:50 96 05/16/23 20:00 98.9 F 85 19 136/64 94 L 05/16/23 19:35 97 05/16/23 17:01 96 05/16/23 16:00 99.1 F 85 17 136/65 94 L 05/16/23 14:27 98.6 F 80 18 128/65 94 L Pain Assessment - Last Documented Pain Intensity 4 Pain Scale Used 0-10 Pain Scale Intake and Output: Intake & Output 05/15/23 05/16/23 05/17/23 05/18/23 11:59 11:59 11:59 11:59 Intake Total 1422 Output Total 250 Balance 1172 Weight 89.3 kg 89.3 kg Lab Results: Lab Results-Last 24 Hours 05/16/23 05/16/23 05/16/23 Range/Units 09:00 13:00 13:11 WBC (4.0-10.5) x10^3/uL RBC (4.1-5.6) x10^6/uL Hgb (12.5-18.0) g/dL Hct (42-50) % MCV (78-100) fL MCH (26-32) pg MCHC (32-36) g/dL RDW (11.5-14.0) % Plt Count (150-450) x10^3/uL MPV (7.5-11.0) fL Sodium (137-145) mmol/L Potassium (3.5-5.1) mmol/L Chloride (98-107) mmol/L Carbon Dioxide (22-30) mmol/L Anion Gap (5-15) MEQ/L BUN (9-20) mg/dL Creatinine (0.66-1.25) mg/dL Estimated GFR ML/MIN Glucose (74-106) mg/dL Calcium (8.4-10.2) mg/dL Total Bilirubin (0.2-1.3) mg/dL Direct Bilirubin 0.3 (0.0-0.4) mg/dL AST (17-59) U/L ALT (0-50) U/L Alkaline Phosphatase (38-126) U/L Troponin I < 0.012 (0.000-0.034) ng/mL Serum Total Protein (6.3-8.2) g/dL Albumin (3.5-5.0) g/dL Procalcitonin 0.260 H (0.030-0.080) ng/mL 05/16/23 05/17/23 05/17/23 Range/Units 17:14 08:12 08:12 WBC 16.1 H (4.0-10.5) x10^3/uL RBC 5.04 (4.1-5.6) x10^6/uL Hgb 15.5 (12.5-18.0) g/dL Hct 46.4 (42-50) % MCV 92.1 (78-100) fL MCH 30.8 (26-32) pg MCHC 33.4 (32-36) g/dL RDW 13.3 (11.5-14.0) % Plt Count 129 L (150-450) x10^3/uL MPV 10.0 (7.5-11.0) fL Sodium 135 L (137-145) mmol/L Potassium 4.2 (3.5-5.1) mmol/L Chloride 101 (98-107) mmol/L Carbon Dioxide 27 (22-30) mmol/L Anion Gap 11.4 (5-15) MEQ/L BUN 13 (9-20) mg/dL Creatinine 0.90 (0.66-1.25) mg/dL Estimated GFR > 60.0 ML/MIN Glucose 142 H (74-106) mg/dL Calcium 8.2 L (8.4-10.2) mg/dL Total Bilirubin 5.70 H (0.2-1.3) mg/dL Direct Bilirubin (0.0-0.4) mg/dL AST 102 H (17-59) U/L ALT 115 H (0-50) U/L Alkaline Phosphatase 63 (38-126) U/L Troponin I < 0.012 (0.000-0.034) ng/mL Serum Total Protein 6.7 (6.3-8.2) g/dL Albumin 3.8 (3.5-5.0) g/dL Procalcitonin (0.030-0.080) ng/mL 05/17/23 Range/Units 08:12 WBC (4.0-10.5) x10^3/uL RBC (4.1-5.6) x10^6/uL Hgb (12.5-18.0) g/dL Hct (42-50) % MCV (78-100) fL MCH (26-32) pg MCHC (32-36) g/dL RDW (11.5-14.0) % Plt Count (150-450) x10^3/uL MPV (7.5-11.0) fL Sodium (137-145) mmol/L Potassium (3.5-5.1) mmol/L Chloride (98-107) mmol/L Carbon Dioxide (22-30) mmol/L Anion Gap (5-15) MEQ/L BUN (9-20) mg/dL Creatinine (0.66-1.25) mg/dL Estimated GFR ML/MIN Glucose (74-106) mg/dL Calcium (8.4-10.2) mg/dL Total Bilirubin (0.2-1.3) mg/dL Direct Bilirubin 1.1 H (0.0-0.4) mg/dL AST (17-59) U/L ALT (0-50) U/L Alkaline Phosphatase (38-126) U/L Troponin I (0.000-0.034) ng/mL Serum Total Protein (6.3-8.2) g/dL Albumin (3.5-5.0) g/dL Procalcitonin (0.030-0.080) ng/mL Radiology Exams: Radiology Procedures Category Date Time Status ABDOMEN AND PELVIS W CONTRAST [CT] Stat Exams 05/16/23 10:45 Completed CHEST 1 VIEW (PORTABLE) Stat Exams 05/16/23 08:51 Completed GALLBLADDER [US] Urgent Exams 05/18/23 08:00 Ordered LIVER OR SPLEEN [US] Urgent Exams 05/18/23 08:00 Ordered Assessment/Plan (1) Abdominal pain Current Visit: Yes Status: Acute Assessment & Plan: - total Bili elevated @ 4.20 - WBC 14.3 - CBC, CMP daily - LA- WNL - LFT- WNL - Blood cultures x2 - PCT - US of liver and gallbladder - NPO - Zosyn 3.375 Q6 - NS @ 100ml/hr - CT abd/ pelvis 05/16: IMPRESSION: 1. Mixed type III hiatus hernia noted. 2. Fatty liver disease and small right adrenal myelolipoma. 3. Small duodenal diverticulum, sigmoid diverticulosis without diverticulitis, needs clinical correlation and follow up. 4. Tiny right renal cyst. 5. Gall bladder is borderline distended with no pericholecystic fluid, edema or wall thickening, no intraluminal high density stone seen, the appearance may be due to prolonged fasting, if concern for acalcular cholecystitis persist, post prandial followup ultrasound will help in further evaluation. 6. Urinary bladder diverticulum. - Needs US for further evaluation- to be done Thursday - Consider surgical consult 05/17 - WBC, bilirubin, AST and ALT elevated - trend labs - 2LNC for comfort Code(s): R10.9 - UNSPECIFIED ABDOMINAL PAIN (2) Chest pain Current Visit: Yes Status: Acute Assessment & Plan: - trop x3 negative - Chest XR: Portable apical lordotic chest now underinflated crowding both lung bases. No focal infiltrate, consolidation, or large effusion. Heart not enlarged with new small hiatal hernia. Bony thorax intact again with osteopenia and mild degenerative changes - no active CP Code(s): R07.9 - CHEST PAIN, UNSPECIFIED (3) Hypothyroidism Current Visit: Yes Status: Chronic Assessment & Plan: - Continue Levothyroxine Code(s): E03.9 - HYPOTHYROIDISM, UNSPECIFIED (4) Nausea & vomiting Current Visit: Yes Status: Acute Assessment & Plan: - PRN N/V meds Code(s): R11.2 - NAUSEA WITH VOMITING, UNSPECIFIED (5) NAFLD (nonalcoholic fatty liver disease) Current Visit: Yes Status: Chronic Assessment & Plan: - known hx - US of liver (6) Constipation Current Visit: Yes Status: Acute Assessment & Plan: - PRN colace 05/17 - no BM VTE: scd's D/c plan: 1-2 days Next of kin: - Lorena [phone] Code(s): K59.00 - CONSTIPATION, UNSPECIFIED
[2023-05-17] MEDS: Sodium Chloride 0.9% 1000 ML 1,000 ML IV SCH (13:41)
[2023-05-17] MEDS ORDERED: Artificial Tears 15 ML OP SCH (17:00)
[2023-05-17] MEDS: TYLENOL 325 MG PO PRN (18:36)
[2023-05-18] MEDS: Sodium Chloride 0.9% 1000 ML 1,000 ML IV SCH ×4 (03:35→23:07)
[2023-05-18 04:46] LABS: Hematocrit 45.7 % (42-50); Mean Cell Volume 93.3 fL (78-100); Mean Platelet Volume 10.6 fL (7.5-11.0); Platelet Count 105 x10^3/uL (150-450); Red Cell Distribution Width 13.7 % (11.5-14.0); White Blood Count 11.2 x10^3/uL (4.0-10.5)
[2023-05-18 05:18] LABS: ALBUMIN 3.2 g/dL (3.5-5.0); ALKALINE PHOSPHATASE 75 U/L (38-126); ANION GAP 10.7 MEQ/L (5-15); BLOOD UREA NITROGEN 18 mg/dL (9-20); CHLORIDE 101 mmol/L (98-107); Calcium 7.8 mg/dL (8.4-10.2); Carbon Dioxide 28 mmol/L (22-30); Creatinine 1 1.06 mg/dL (0.66-1.25); EST GLOMERULAR FILTRATION RATE > 60.0 ML/MIN; Glucose 103 mg/dL (74-106); Potassium 4.2 mmol/L (3.5-5.1); SGOT/AST 86 U/L (17-59); SGPT/ALT 108 U/L (0-50); SODIUM 135 mmol/L (137-145); Total Protein 5.9 g/dL (6.3-8.2)
[2023-05-18 05:19] LABS: Hemoglobin 14.7 g/dL (12.5-18.0); Mean Corpuscular Hemoglobin 30.7 pg (26-32)
[2023-05-18] MEDS: MORPHINE SULFATE 4 MG INJ IV PRN ×5 (05:19→21:07)
[2023-05-18 05:20] LABS: Mean Corpuscular Hgb Concent. 33.2 g/dL (32-36)
[2023-05-18] MEDS: Zofran 4 MG/2 ML VIAL IV PRN ×4 (05:25→21:08)
[2023-05-18] MEDS: PIPERACILLIN/TAZOBACTAM 3.375 GM in Sodium Chloride 100ML MINI-BAG PLUS 100 ML IV SCH ×4 (05:27→23:07)
[2023-05-18] MEDS: SYNTHROID 50 MCG PO SCH (09:08)
[2023-05-18] MEDS: ECOTRIN 81 MG PO SCH (09:08)
--- NOTE | 2023-05-18 11:15 | XRAY ---
Indication: Right upper quadrant pain. Two-dimensional gallbladder sonogram performed. Comparison: May 22, 2020 Pancreas not well-visualized due to overlying bowel gas. Visualized gallbladder again moderately distended without gallstones. Borderline wall thickening up to 2.6 mm with new pericholecystic fluid. Common bile left measures 4.3 mm. No intrahepatic biliary distention. Visualized liver is homogeneous in echogenicity with new tiny perihepatic fluid. Right kidney measures 11.2 cm in length and again sonographically unremarkable. Compression: 1. Again abnormal distended gallbladder without gallstones. New borderline wall thickening and pericholecystic fluid. Rule out acalculous cholecystitis. 2. Nonvisualization pancreas.
[2023-05-18] MEDS: TYLENOL 325 MG PO PRN (11:17)
--- NOTE | 2023-05-18 16:46 | TM.IN ---
Tele-Medicine Incident Note - Incident Note Tel-Medicine Incident Note: 05/18/23 1642 Full progress note to follow. Requested transfer to [facility] for consideration of ERCP due to concern about acalculous cholecystitis with significant hyperbilirubinemia, based on the recommendations of Dr. Sarah. [place] ERCP specialist recommended MRCP, which has been ordered. I have also attempted to page Dr. Sarah to update him regarding this recommendation for MRCP (and if negative, whether the patient would be deemed to be a surgical candidate); I am awaiting a call-back. Continue IV antibiotics and awaiting MRCP and further dialog with surgery. Telemedicine Encounter - Telemedicine Encounter Telemedicine Encounter: The entirety of this encounter was performed via Telemedicine"
--- NOTE | 2023-05-18 17:08 | PCM.NOTE ---
Date and Time: 05/18/231655 Subjective Assessment: Mr Reis is a 67 year old male with pmhx of hypothyroidism and fatty liver disease admitted for probable acute cholecystits with worsening hyperbilirubinemia. CT imaging of the abdomen identified a borderline distended GB with no pericholecystic fluid/edema or wall thickening with US imaging suggested. US imaging with re-identified abnormally distended GB without gallstones, now with borderline wall thickening and pericholecystic fluid, suggestion to r/o acalculous cholecystitis. General surgery was consulted with suggestions for transfer to for ERCP consideration/GI consult. [place] ERCP specialist recommending MRCP, which is currently ordered and pending completion. May be a surgical candidate if MRCP is negative for obstruction. Lab interpretation showing improvement of WBC, now down to 11.2(16.1) with the initiation of abx. AST/ALT also showing mild improvement. Total bili remains el vated at 5.4 (5.70) as well as direct bili 1.9 (1.1). Patient states he is feeling better today. Endorses RUQ pain, as well as LUQ with palpation. Additionally has some nausea, no vomiting. Patient reports that he does see GI Kay Serna for his fatty liver disease, was screened in for hepatitis. Will order hep gonzalez to r/o hepatitis. Denies prior or current use of alcohol. - Review of Systems Constitutional: Fever Eyes: No Symptoms Ears, Nose, & Throat: No Symptoms Respiratory: No Symptoms Cardiac: No Symptoms Abdominal/Gastrointestinal: Abdominal Pain, Nausea Genitourinary Symptoms: No Symptoms Musculoskeletal: No Symptoms Skin: No Symptoms Neurological: No Symptoms Psychological: No Symptoms Objective Exam General Appearance: no apparent distress Neurologic Exam: alert, oriented x 3, cooperative Skin Exam: normal color Eye Exam: PERRL Respiratory Exam: normal breath sounds Cardiovascular Exam: regular rate/rhythm, normal heart sounds Gastrointestinal/Abdomen Exam: tenderness (TTP to RUQ/LUQ), hepatomegaly Extremity Exam: normal inspection Back Exam: normal inspection OBJECTIVE DATA Vital Signs: Vital Signs - 24 hr Temp Pulse Resp BP Pulse Ox 05/18/23 11:00 100 F 108 H 16 129/61 94 L 05/18/23 07:31 94 L 05/18/23 07:00 98.3 F 115 H 16 129/59 94 L 05/18/23 03:00 98.1 F 102 H 18 130/66 90 L 05/17/23 23:00 97.1 F 85 17 05/17/23 19:41 100.7 F 111 H 16 105/58 93 L 05/17/23 19:20 93 L 05/17/23 18:33 100.4 F 120 H 05/17/23 17:29 99.5 F 112 H 19 Pain Assessment - Last Documented Pain Intensity 4 Pain Scale Used 0-10 Pain Scale Intake and Output: Intake & Output 05/16/23 05/17/23 05/18/23 05/19/23 11:59 11:59 11:59 11:59 Intake Total 1422 1780 0 Output Total 250 Balance 1172 1780 0 Weight 89.3 kg 89.3 kg Lab Results: Lab Results-Last 24 Hours 05/18/23 05/18/23 05/18/23 Range/Units 04:12 04:12 04:12 WBC 11.2 H (4.0-10.5) x10^3/uL RBC 4.90 (4.1-5.6) x10^6/uL Hgb 14.7 (12.5-18.0) g/dL Hct 45.7 (42-50) % MCV 93.3 (78-100) fL MCH 30.7 (26-32) pg MCHC 33.2 (32-36) g/dL RDW 13.7 (11.5-14.0) % Plt Count 105 L (150-450) x10^3/uL MPV 10.6 (7.5-11.0) fL Sodium 135 L (137-145) mmol/L Potassium 4.2 (3.5-5.1) mmol/L Chloride 101 (98-107) mmol/L Carbon Dioxide 28 (22-30) mmol/L Anion Gap 10.7 (5-15) MEQ/L BUN 18 (9-20) mg/dL Creatinine 1.06 (0.66-1.25) mg/dL Estimated GFR > 60.0 ML/MIN Glucose 103 (74-106) mg/dL Calcium 7.8 L (8.4-10.2) mg/dL Total Bilirubin 5.40 H (0.2-1.3) mg/dL Direct Bilirubin 1.9 H (0.0-0.4) mg/dL AST 86 H (17-59) U/L ALT 108 H (0-50) U/L Alkaline Phosphatase 75 (38-126) U/L Serum Total Protein 5.9 L (6.3-8.2) g/dL Albumin 3.2 L (3.5-5.0) g/dL Radiology Exams: Radiology Procedures Category Date Time Status GALLBLADDER [US] Urgent Exams 05/18/23 08:00 Completed MRI ABD W/O CONTRAST [MRI] Stat Exams 05/18/23 16:53 Ordered Assessment/Plan (1) Abdominal pain Current Visit: Yes Status: Acute Assessment & Plan: - total Bili elevated @ 4.20 - WBC 14.3 - CBC, CMP daily - LA- WNL - LFT- WNL - Blood cultures x2 - PCT - US of liver and gallbladder - NPO - Zosyn 3.375 Q6 - NS @ 100ml/hr - CT abd/ pelvis 05/16: IMPRESSION: 1. Mixed type III hiatus hernia noted. 2. Fatty liver disease and small right adrenal myelolipoma. 3. Small duodenal diverticulum, sigmoid diverticulosis without diverticulitis, needs clinical correlation and follow up. 4. Tiny right renal cyst. 5. Gall bladder is borderline distended with no pericholecystic fluid, edema or wall thickening, no intraluminal high density stone seen, the appearance may be due to prolonged fasting, if concern for acalcular cholecystitis persist, post prandial followup ultrasound will help in further evaluation. 6. Urinary bladder diverticulum. - Needs US for further evaluation- to be done Thursday - Consider surgical consult 05/17 - WBC, bilirubin, AST and ALT elevated - trend labs - 2LNC for comfort 05/18: -US showing 1. Again abnormal distended gallbladder without gallstones. New borderline wall thickening and pericholecystic fluid. Rule out acalculous cholecystitis. 2. Nonvisualization pancreas. -MRCP pending completion, most likely performed tomorrow -[facility] transfer pending MRCP results, if obstruction identified, transfer for ERCP, otherwise patient a surgical candidate -Hep panel pending -Patient responding to Zosyn, will continue Code(s): R10.9 - UNSPECIFIED ABDOMINAL PAIN (2) Hyperbilirubinemia Current Visit: Yes Status: Acute Assessment & Plan: -see abdominal pain -Medication list reviewed -Will order mono spot/EBV/CMV -TBili trend 5.4<5.70>4.20 -DBili trend 1.9>1.1>0.3 Code(s): E80.6 - OTHER DISORDERS OF BILIRUBIN METABOLISM (3) Chest pain Current Visit: Yes Status: Acute Assessment & Plan: - trop x3 negative - Chest XR: Portable apical lordotic chest now underinflated crowding both lung bases. No focal infiltrate, consolidation, or large effusion. Heart not enlarged with new small hiatal hernia. Bony thorax intact again with osteopenia and mild degenerative changes - no active CP Code(s): R07.9 - CHEST PAIN, UNSPECIFIED (4) Nausea & vomiting Current Visit: Yes Status: Acute Assessment & Plan: -Continue anti-emetics prn Code(s): R11.2 - NAUSEA WITH VOMITING, UNSPECIFIED (5) Hypothyroidism Current Visit: Yes Status: Chronic Assessment & Plan: - Continue Levothyroxine Code(s): E03.9 - HYPOTHYROIDISM, UNSPECIFIED (6) NAFLD (nonalcoholic fatty liver disease) Current Visit: Yes Status: Chronic Assessment & Plan: -Noted, add complexity patient sees Dr. Kay Serna VTE: scd's D/c plan: Pending MRCP results Next of kin: - Lorena [phone]
[2023-05-19] MEDS: PIPERACILLIN/TAZOBACTAM 3.375 GM in Sodium Chloride 100ML MINI-BAG PLUS 100 ML IV SCH ×4 (05:10→23:04)
[2023-05-19 06:20] LABS: Absolute Neutrophil Ct (ANC) 10.72 x10^3/uL (1.4-6.9); BASOPHIL % 0.2 % (0.0-0.4); Basophil (Absolute #) 0.02 x10^3/uL (0-0.4); Eosinophil (Absolute #) 0 x10^3/uL (0-0.5); Hematocrit 42.1 % (42-50); Hemoglobin 14.1 g/dL (12.5-18.0); IMMATURE GRAN # 0.06 x10^3u/L (0.00-0.03); IMMATURE GRAN % 0.5 % (0.00-0.4); Lymphocytes % 4.2 % (24.0-44.0); Mean Cell Volume 91.7 fL (78-100); Mean Corpuscular Hemoglobin 30.7 pg (26-32); Mean Corpuscular Hgb Concent. 33.5 g/dL (32-36); Mean Platelet Volume 10.1 fL (7.5-11.0); Monocyte (Absolute #) 0.61 x10^3/uL (0.0-1.3); Monocytes % 5.1 % (0.0-12.0); Platelet Count 117 x10^3/uL (150-450); Red Blood Count 4.59 x10^6/uL (4.1-5.6); White Blood Count 11.9 x10^3/uL (4.0-10.5)
[2023-05-19 06:39] LABS: ALBUMIN 3.3 g/dL (3.5-5.0); ALKALINE PHOSPHATASE 107 U/L (38-126); ANION GAP 11.7 MEQ/L (5-15); BLOOD UREA NITROGEN 22 mg/dL (9-20); CHLORIDE 106 mmol/L (98-107); Calcium 8.2 mg/dL (8.4-10.2); Carbon Dioxide 26 mmol/L (22-30); Creatinine 1 0.85 mg/dL (0.66-1.25); EST GLOMERULAR FILTRATION RATE > 60.0 ML/MIN; Glucose 101 mg/dL (74-106); Potassium 3.8 mmol/L (3.5-5.1); SGOT/AST 58 U/L (17-59); SGPT/ALT 81 U/L (0-50); SODIUM 141 mmol/L (137-145); Total Protein 6.1 g/dL (6.3-8.2)
[2023-05-19] MEDS: Sodium Chloride 0.9% 1000 ML 1,000 ML IV SCH ×3 (07:10→21:09)
[2023-05-19] MEDS: MORPHINE SULFATE 4 MG INJ IV PRN ×2 (07:39→15:07)
[2023-05-19 09:42] LABS: Slide Review 1 YES
[2023-05-19] MEDS: ECOTRIN 81 MG PO SCH (10:04)
[2023-05-19] MEDS: SYNTHROID 50 MCG PO SCH (10:04)
--- NOTE | 2023-05-19 10:10 | CONS ---
CONSULT DATE: 05/18/2023 This patient was seen for Dr. Jimenez who is on-call for our group today. I was getting ready to leave the building, was doing some outpatient procedures. They asked that I see a patient on the floor. HISTORY OF PRESENT ILLNESS: The patient is a 67 year-old apparently who has been sitting here all weekend since the . There has been some been some vague upper abdominal pain radiating to his chest and some nausea and vomiting. The patient is a little bit more towards the right side. He had just a borderline distended gallbladder on CT scan. US did not show any stones, a little borderline distended gallbladder, just slight wall thickening. PAST MEDICAL HISTORY: HOME MEDICATIONS: He is on aspirin, cetirizine, Nexium, Synthroid, Zanaflex for some hypothyroidism, some reflux, and allergies. ALLERGIES: NKDA. FAMILY HISTORY: Negative with regards to this problem. SOCIAL HISTORY: Denies alcohol abuse. PAST SURGICAL HISTORY: Denies any prior abdominal surgeries. Has had some reflux in the past. He has had colonoscopy and elbow surgery in the past. REVIEW OF SYSTEMS: 14 systems reviewed per admission assessment. PHYSICAL EXAMINATION: GENERAL: Slightly uncomfortable, otherwise no acute distress. HEENT: Some icterus. EOM intact. Oral mucus membranes moist. NECK: No JVD. CHEST: Equal excursion. Nonlabored breathing. CVS: Regular rate and rhythm pulse. ABDOMEN: Soft. Some mild tenderness in right upper quadrant. No peritoneal signs. EXTREMITIES: No edema. NEURO: Alert and oriented, moving extremities symmetrically. PSYCH: Appropriate mood and affect. IMPRESSION: 1. SOME UPPER ABDOMINAL PAIN. He does not have any gallstones. He does have some borderline thickening of his gallbladder with slight distention. He has significantly elevated liver function tests of unclear etiology, bilirubin 5.4, apparently it was 5.7 yesterday. Elevated alkaline phosphatase of 75, ALT 108, AST 86. 67 year-old with mild right upper quadrant pain and significantly elevated liver function tests of unclear etiology. Could be from sludge that passed through and is stuck in his common duct. Could be from primary liver disease. He says he is not an alcoholic. He does not have any gallstone on the US. Given his significantly elevated liver function tests, felt this needs to be addressed prior to considering any gallbladder intervention. Need to check with GI and see what their thoughts are. He might need an MRCP and HIDA scan as he has no gallstones. HIDA scans are not done at this facility on a daily basis. I am not sure if he can do that tomorrow or not. Will let Dr. Jimenez know as I am seeing this patient for him, but given his significantly elevated bilirubin that high, I would not proceed directly with cholecystectomy at this point without further work-up. Whether he has got hepatitis, primary liver disease, or whether he has got something in his duct causing sludge or other, it needs to be addressed with an endoscopic retrograde cholangiopancreatography. Discussed with the patient and family at the bedside. Again, need opinion from GI. Made need MRCP and HIDA scan. Will let Dr. Jimenez know and update on significantly elevated bilirubin. Thank you for the consult.
--- NOTE | 2023-05-19 10:22 | XRAY ---
Indication: Abdomen pain. Elevated bilirubin. Distended gallbladder on recent sonogram. Conventional MRCP performed. Comparison: None Maximum diameter common bile duct is 6 mm. No abnormal intrahepatic biliary distention or choledochal stone. Pancreatic duct unremarkable. Abnormally distended gallbladder measuring at least 12 x 4.2 cm in greatest axial dimension. Neck of gallbladder demonstrates tiny intraluminal densities in the dependent portion favoring gravel/sludge. Circumferential gallbladder wall thickening up to 3 mm with tiny perihepatic/pericholecystic free fluid concerning for acute cholecystitis. Right mid kidney demonstrates 8 mm cortical cyst. Remaining visualized liver, pancreas, spleen, adrenal glands, kidneys, stomach, bowel loops, aorta, and IVC are unremarkable. No abnormal bone marrow signal. Impression: 1. Abnormal distended gallbladder with tiny gravel/sludge in neck of gallbladder. Also gallbladder wall thickening and tiny perihepatic/pericholecystic concerning for acute cholecystitis. 2. Tiny right renal cyst. 3. Remaining MRCP is negative.
--- NOTE | 2023-05-19 13:08 | PCM.NOTE ---
Date and Time: 05/19/23 1257 Subjective Assessment: Mr Reis is a 67 year old male with pmhx of hypothyroidism and fatty liver disease admitted for probable acute cholecystits with worsening hyperbilirubinemia. CT imaging of the abdomen identified a borderline distended GB with no pericholecystic fluid/edema or wall thickening with US imaging suggested. US imaging with re-identified abnormally distended GB without gallstones, now with borderline wall thickening and pericholecystic fluid, suggestion to r/o acalculous cholecystitis. General surgery was consulted with suggestions for transfer to for ERCP consideration/GI consult. [place] ERCP specialist recommending MRCP, which showed an abnormal distended gallbladder with tiny gravel/sludge in the neck of the gallbladder as well as gallbladder wall thickening and tiny perihepatic/pericholecystic free fluid concerning for acute cholecystitis. Lab with noted improvement WBC, now down to 11.9(16.1) with the initiation of abx. AST now wnl at 58 ALT now at 81 (108). Total bili remains elevated at 3.1 (5.4) near baseline of 2.1-2.4. Patient states he is feeling better today. Endorses continued RUQ pain. Additionally has some nausea, no vomiting. Patient reports that he does see GI Kay Serna for his fatty liver disease, was screened in for hepatitis which resulted negative. Current hep gonzalez pending. Denies prior or current use of alcohol. Spoke with Dr. Froylan Jimenez (surgery) regarding new finding on MRCP as well as improvement in labs, plan is for surgical intervention 05/20/23. - Review of Systems Constitutional: No Symptoms Eyes: No Symptoms Ears, Nose, & Throat: No Symptoms Respiratory: No Symptoms Cardiac: No Symptoms Abdominal/Gastrointestinal: Nausea, Appetite Changes, Other (TTP RUQ) Genitourinary Symptoms: No Symptoms Musculoskeletal: No Symptoms Skin: No Symptoms Neurological: No Symptoms Psychological: No Symptoms Endocrine: No Symptoms Hematologic/Lymphatic: No Symptoms Objective Exam General Appearance: no apparent distress Neurologic Exam: alert, oriented x 3, cooperative Skin Exam: normal color Eye Exam: PERRL Respiratory Exam: normal breath sounds Cardiovascular Exam: regular rate/rhythm, normal heart sounds Gastrointestinal/Abdomen Exam: soft, tenderness (TTP RUQ), hepatomegaly Extremity Exam: normal inspection OBJECTIVE DATA Vital Signs: Vital Signs - 24 hr Temp Pulse Resp BP Pulse Ox 08/22/23 11:00 98.5 F 99 H 16 135/67 92 L 05/19/23 07:28 97 05/19/23 07:00 97.8 F 93 H 16 128/65 96 05/19/23 03:00 97.9 F 98 H 16 139/68 92 L 05/18/23 23:00 99.5 F 102 H 16 116/64 91 L 05/18/23 19:39 95 05/18/23 19:00 98.9 F 100 H 120/64 91 L 05/18/23 15:00 98.4 F 100 H 16 124/59 98 Pain Assessment - Last Documented Pain Intensity 5 Pain Scale Used 0-10 Pain Scale Intake and Output: Intake & Output 05/17/23 05/18/23 05/19/23 05/20/23 11:59 11:59 11:59 11:59 Intake Total 1422 1780 3573 Output Total 250 550 Balance 1172 1780 3023 Weight 89.3 kg Lab Results: Lab Results-Last 24 Hours 05/18/23 05/19/23 05/19/23 Range/Units 17:15 06:15 06:15 WBC 11.9 H (4.0-10.5) x10^3/uL RBC 4.59 (4.1-5.6) x10^6/uL Hgb 14.1 (12.5-18.0) g/dL Hct 42.1 (42-50) % MCV 91.7 (78-100) fL MCH 30.7 (26-32) pg MCHC 33.5 (32-36) g/dL RDW 14.0 (11.5-14.0) % Plt Count 117 L (150-450) x10^3/uL MPV 10.1 (7.5-11.0) fL Gran % 90.0 H (36.0-66.0) % Immature Gran % (Auto) 0.5 H (0.00-0.4) % Nucleat RBC Rel Count 0.0 (0.00-0.1) % Eos # (Auto) 0 (0-0.5) x10^3/uL Immature Gran # (Auto) 0.06 H (0.00-0.03) x10^3u/L Absolute Lymphs (auto) 0.50 L (1.0-4.6) x10^3/uL Absolute Monos (auto) 0.61 (0.0-1.3) x10^3/uL Absolute Nucleated RBC 0.00 (0.00-0.01) x10^3u/L Lymphocytes % 4.2 L (24.0-44.0) % Monocytes % 5.1 (0.0-12.0) % Eosinophils % 0.0 (0.00-5.0) % Basophils % 0.2 (0.0-0.4) % Absolute Granulocytes 10.72 H (1.4-6.9) x10^3/uL Basophils # 0.02 (0-0.4) x10^3/uL Sodium 141 (137-145) mmol/L Potassium 3.8 (3.5-5.1) mmol/L Chloride 106 (98-107) mmol/L Carbon Dioxide 26 (22-30) mmol/L Anion Gap 11.7 (5-15) MEQ/L BUN 22 H (9-20) mg/dL Creatinine 0.85 (0.66-1.25) mg/dL Estimated GFR > 60.0 ML/MIN Glucose 101 (74-106) mg/dL Calcium 8.2 L (8.4-10.2) mg/dL Total Bilirubin 3.10 H (0.2-1.3) mg/dL AST 58 (17-59) U/L ALT 81 H (0-50) U/L Alkaline Phosphatase 107 (38-126) U/L Serum Total Protein 6.1 L (6.3-8.2) g/dL Albumin 3.3 L (3.5-5.0) g/dL Monoscreen NEGATIVE (NEGATIVE) Slides for Path Review YES Radiology Exams: Radiology Procedures Category Date Time Status GALLBLADDER [US] Urgent Exams 05/18/23 08:00 Completed MRI ABD W/O CONTRAST [MRI] Stat Exams 05/19/23 16:53 Completed Assessment/Plan (1) Abdominal pain Current Visit: Yes Status: Acute Assessment & Plan: - total Bili elevated @ 4.20 - WBC 14.3 - CBC, CMP daily - LA- WNL - LFT- WNL - Blood cultures x2 - PCT - US of liver and gallbladder - NPO - Zosyn 3.375 Q6 - NS @ 100ml/hr - CT abd/ pelvis 05/16: IMPRESSION: 1. Mixed type III hiatus hernia noted. 2. Fatty liver disease and small right adrenal myelolipoma. 3. Small duodenal diverticulum, sigmoid diverticulosis without diverticulitis, needs clinical correlation and follow up. 4. Tiny right renal cyst. 5. Gall bladder is borderline distended with no pericholecystic fluid, edema or wall thickening, no intraluminal high density stone seen, the appearance may be due to prolonged fasting, if concern for acalcular cholecystitis persist, post prandial followup ultrasound will help in further evaluation. 6. Urinary bladder diverticulum. - Needs US for further evaluation- to be done Thursday - Consider surgical consult 05/17 - WBC, bilirubin, AST and ALT elevated - trend labs - 2LNC for comfort 05/18: -US showing 1. Again abnormal distended gallbladder without gallstones. New borderline wall thickening and pericholecystic fluid. Rule out acalculous cholecystitis. 2. Nonvisualization pancreas. -MRCP pending completion, most likely performed tomorrow -[facility] transfer pending MRCP results, if obstruction identified, transfer for ERCP, otherwise patient a surgical candidate -Hep panel pending -Patient responding to Zosyn, will continue 05/19: -MRCP findings concerning for acute cholecystitis, plan for surgery tomorrow with Dr. Froylan Jimenez, patient to be NPO after midnight -Labs with noted improved TBili near baseline at 3.1 -Continue Zosyn -Hep gonzalez pending Code(s): R10.9 - UNSPECIFIED ABDOMINAL PAIN (2) Hyperbilirubinemia Current Visit: Yes Status: Acute Assessment & Plan: -see abdominal pain -Medication list reviewed -[place] spot negative -EBV/CMV pending -TBili trend 5.4<5.70>4.20>3.1 -DBili trend 1.9>1.1>0.3 Code(s): E80.6 - OTHER DISORDERS OF BILIRUBIN METABOLISM (3) Chest pain Current Visit: Yes Status: Acute Assessment & Plan: - trop x3 negative - Chest XR: Portable apical lordotic chest now underinflated crowding both lung bases. No focal infiltrate, consolidation, or large effusion. Heart not enlarged with new small hiatal hernia. Bony thorax intact again with osteopenia and mild degenerative changes - no active CP Code(s): R07.9 - CHEST PAIN, UNSPECIFIED (4) Nausea & vomiting Current Visit: Yes Status: Acute Assessment & Plan: -Continue anti-emetics prn Code(s): R11.2 - NAUSEA WITH VOMITING, UNSPECIFIED (5) Hypothyroidism Current Visit: Yes Status: Chronic Assessment & Plan: - Continue Levothyroxine Code(s): E03.9 - HYPOTHYROIDISM, UNSPECIFIED (6) NAFLD (nonalcoholic fatty liver disease) Current Visit: Yes Status: Chronic Assessment & Plan: -Noted, add complexity patient sees Dr. Kay Serna -Patient near baseline labs VTE: scd's D/c plan: Pending MRCP results Next of kin: - Lorena [phone]
[2023-05-19] MEDS: Docusate Sodium 100 MG PO PRN (15:01)
[2023-05-19] MEDS: Zofran 4 MG/2 ML VIAL IV PRN (15:07)
[2023-05-19] MEDS ORDERED: TUCKS TP ONE (22:26)
[2023-05-19] MEDS: TUCKS TP SCH (22:34)
[2023-05-20] MEDS: PIPERACILLIN/TAZOBACTAM 3.375 GM in Sodium Chloride 100ML MINI-BAG PLUS 100 ML IV SCH ×3 (05:00→17:50)
[2023-05-20 05:06] LABS: Absolute Neutrophil Ct (ANC) 9.57 x10^3/uL (1.4-6.9); BASOPHIL % 0.2 % (0.0-0.4); Basophil (Absolute #) 0.02 x10^3/uL (0-0.4); Eosinophil % 0.5 % (0.00-5.0); Eosinophil (Absolute #) 0.05 x10^3/uL (0-0.5); Hematocrit 37.7 % (42-50); IMMATURE GRAN # 0.04 x10^3u/L (0.00-0.03); IMMATURE GRAN % 0.4 % (0.00-0.4); Lymphocyte (Absolute #) 0.59 x10^3/uL (1.0-4.6); Lymphocytes % 5.4 % (24.0-44.0); Mean Cell Volume 89.1 fL (78-100); Mean Corpuscular Hemoglobin 30.7 pg (26-32); Mean Corpuscular Hgb Concent. 34.5 g/dL (32-36); Mean Platelet Volume 10.1 fL (7.5-11.0); Monocyte (Absolute #) 0.58 x10^3/uL (0.0-1.3); Monocytes % 5.3 % (0.0-12.0); Neutrophil % 88.2 % (36.0-66.0); Platelet Count 140 x10^3/uL (150-450); Red Blood Count 4.23 x10^6/uL (4.1-5.6); Red Cell Distribution Width 14.5 % (11.5-14.0); White Blood Count 10.9 x10^3/uL (4.0-10.5)
[2023-05-20 05:23] LABS: ALBUMIN 2.9 g/dL (3.5-5.0); ALKALINE PHOSPHATASE 127 U/L (38-126); ANION GAP 11.7 MEQ/L (5-15); BLOOD UREA NITROGEN 22 mg/dL (9-20); CHLORIDE 106 mmol/L (98-107); Carbon Dioxide 26 mmol/L (22-30); Creatinine 1 0.78 mg/dL (0.66-1.25); EST GLOMERULAR FILTRATION RATE > 60.0 ML/MIN; Glucose 97 mg/dL (74-106); Potassium 3.3 mmol/L (3.5-5.1); SGOT/AST 56 U/L (17-59); SGPT/ALT 67 U/L (0-50); SODIUM 141 mmol/L (137-145); Total Protein 5.8 g/dL (6.3-8.2)
--- NOTE | 2023-05-20 05:53 | PCM.NOTE ---
Date and Time: 05/20/23 0549 Subjective Assessment: Mr Reis is a 67 year old male with pmhx of hypothyroidism and fatty liver disease admitted for probable acute cholecystits with worsening hyperbilirubinemia. CT imaging of the abdomen identified a borderline distended GB with no pericholecystic fluid/edema or wall thickening with US imaging suggested. US imaging with re-identified abnormally distended GB without gallstones, now with borderline wall thickening and pericholecystic fluid, suggestion to r/o acalculous cholecystitis. General surgery was consulted with suggestions for transfer to for ERCP consideration/GI consult. [place] ERCP specialist recommending MRCP, which showed an abnormal distended gallbladder with tiny gravel/sludge in the neck of the gallbladder as well as gallbladder wall thickening and tiny perihepatic/pericholecystic free fluid concerning for acute cholecystitis. Lab with noted improvement WBC, now down to 10.9(11.9) with the initiation of abx. AST now wnl at 56 ALT now at 67 (81). Total bili remains elevated at 2.6 (3.1) near baseline of 2.1-2.4. Patient reports that he does see POP Serna for his fatty liver disease, was screened in for hepatitis which resulted negative. Current hep gonzalez pending. Denies prior or current use of alcohol. Spoke with Dr. Froylan Jimenez (surgery) regarding new fin ding on MRCP as well as improvement in labs, plan is for surgical intervention 05/20/23. Patient endorsing increase in abdominal pain this morning. - Review of Systems Constitutional: No Symptoms Eyes: No Symptoms Ears, Nose, & Throat: No Symptoms Respiratory: No Symptoms Cardiac: No Symptoms Abdominal/Gastrointestinal: Other (abdominal pain ) Genitourinary Symptoms: No Symptoms Musculoskeletal: No Symptoms Skin: No Symptoms Psychological: No Symptoms Objective Exam General Appearance: no apparent distress Neurologic Exam: alert, oriented x 3, cooperative Skin Exam: normal color Eye Exam: PERRL Neck Exam: normal inspection Respiratory Exam: normal breath sounds Cardiovascular Exam: regular rate/rhythm, normal heart sounds Gastrointestinal/Abdomen Exam: soft, hepatomegaly Extremity Exam: normal inspection OBJECTIVE DATA Vital Signs: Vital Signs - 24 hr Temp Pulse Resp BP Pulse Ox 05/20/23 05:20 99.2 F 88 17 131/76 92 L 05/20/23 03:00 99.2 F 88 17 131/76 92 L 05/19/23 23:00 99.9 F 94 H 18 129/66 93 L 05/19/23 19:00 99.4 F 101 H 18 135/69 93 L 05/19/23 18:50 90 L 05/19/23 15:00 98.6 F 107 H 16 125/71 93 L 05/19/23 11:00 98.5 F 99 H 16 135/67 92 L 05/19/23 07:28 97 05/19/23 07:00 97.8 F 93 H 16 128/65 96 Pain Assessment - Last Documented Pain Intensity 4 Pain Scale Used 0-10 Pain Scale Intake and Output: Intake & Output 05/17/23 05/18/23 05/19/23 05/20/23 11:59 11:59 11:59 11:59 Intake Total 1422 1780 3573 619 Output Total 250 550 0 Balance 1172 1780 3023 619 Weight 89.3 kg 89.3 kg Lab Results: Lab Results-Last 24 Hours 05/19/23 05/19/23 05/20/23 Range/Units 06:15 06:15 04:42 WBC 11.9 H 10.9 H (4.0-10.5) x10^3/uL RBC 4.59 4.23 (4.1-5.6) x10^6/uL Hgb 14.1 13.0 (12.5-18.0) g/dL Hct 42.1 37.7 L (42-50) % MCV 91.7 89.1 (78-100) fL MCH 30.7 30.7 (26-32) pg MCHC 33.5 34.5 (32-36) g/dL RDW 14.0 14.5 H (11.5-14.0) % Plt Count 117 L 140 L (150-450) x10^3/uL MPV 10.1 10.1 (7.5-11.0) fL Gran % 90.0 H 88.2 H (36.0-66.0) % Immature Gran % (Auto) 0.5 H 0.4 (0.00-0.4) % Nucleat RBC Rel Count 0.0 0.0 (0.00-0.1) % Eos # (Auto) 0 0.05 (0-0.5) x10^3/uL Immature Gran # (Auto) 0.06 H 0.04 H (0.00-0.03) x10^3u/L Absolute Lymphs (auto) 0.50 L 0.59 L (1.0-4.6) x10^3/uL Absolute Monos (auto) 0.61 0.58 (0.0-1.3) x10^3/uL Absolute Nucleated RBC 0.00 0.00 (0.00-0.01) x10^3u/L Lymphocytes % 4.2 L 5.4 L (24.0-44.0) % Monocytes % 5.1 5.3 (0.0-12.0) % Eosinophils % 0.0 0.5 (0.00-5.0) % Basophils % 0.2 0.2 (0.0-0.4) % Absolute Granulocytes 10.72 H 9.57 H (1.4-6.9) x10^3/uL Basophils # 0.02 0.02 (0-0.4) x10^3/uL Sodium 141 (137-145) mmol/L Potassium 3.8 (3.5-5.1) mmol/L Chloride 106 (98-107) mmol/L Carbon Dioxide 26 (22-30) mmol/L Anion Gap 11.7 (5-15) MEQ/L BUN 22 H (9-20) mg/dL Creatinine 0.85 (0.66-1.25) mg/dL Estimated GFR > 60.0 ML/MIN Glucose 101 (74-106) mg/dL Calcium 8.2 L (8.4-10.2) mg/dL Total Bilirubin 3.10 H (0.2-1.3) mg/dL AST 58 (17-59) U/L ALT 81 H (0-50) U/L Alkaline Phosphatase 107 (38-126) U/L Serum Total Protein 6.1 L (6.3-8.2) g/dL Albumin 3.3 L (3.5-5.0) g/dL Slides for Path Review YES 05/20/23 Range/Units 04:42 WBC (4.0-10.5) x10^3/uL RBC (4.1-5.6) x10^6/uL Hgb (12.5-18.0) g/dL Hct (42-50) % MCV (78-100) fL MCH (26-32) pg MCHC (32-36) g/dL RDW (11.5-14.0) % Plt Count (150-450) x10^3/uL MPV (7.5-11.0) fL Gran % (36.0-66.0) % Immature Gran % (Auto) (0.00-0.4) % Nucleat RBC Rel Count (0.00-0.1) % Eos # (Auto) (0-0.5) x10^3/uL Immature Gran # (Auto) (0.00-0.03) x10^3u/L Absolute Lymphs (auto) (1.0-4.6) x10^3/uL Absolute Monos (auto) (0.0-1.3) x10^3/uL Absolute Nucleated RBC (0.00-0.01) x10^3u/L Lymphocytes % (24.0-44.0) % Monocytes % (0.0-12.0) % Eosinophils % (0.00-5.0) % Basophils % (0.0-0.4) % Absolute Granulocytes (1.4-6.9) x10^3/uL Basophils # (0-0.4) x10^3/uL Sodium 141 (137-145) mmol/L Potassium 3.3 L (3.5-5.1) mmol/L Chloride 106 (98-107) mmol/L Carbon Dioxide 26 (22-30) mmol/L Anion Gap 11.7 (5-15) MEQ/L BUN 22 H (9-20) mg/dL Creatinine 0.78 (0.66-1.25) mg/dL Estimated GFR > 60.0 ML/MIN Glucose 97 (74-106) mg/dL Calcium 8.0 L (8.4-10.2) mg/dL Total Bilirubin 2.60 H (0.2-1.3) mg/dL AST 56 (17-59) U/L ALT 67 H (0-50) U/L Alkaline Phosphatase 127 H (38-126) U/L Serum Total Protein 5.8 L (6.3-8.2) g/dL Albumin 2.9 L (3.5-5.0) g/dL Slides for Path Review Radiology Exams: Radiology Procedures Category Date Time Status GALLBLADDER [US] Urgent Exams 05/18/23 08:00 Completed MRI ABD W/O CONTRAST [MRI] Stat Exams 05/19/23 16:53 Completed Multi-Disciplinary Progress Notes: Multi-Disciplinary Progress Notes 05/19/23 13:54 Case Management Note by Serina Bradford S/W PATIENT- HE CONTINUES TO DENY ANY NEW NEEDS AT TIME OF DC. HE PLANS TO RETURN HOME TO HIS PLF AT TIME OF DC Initialized on 05/19/23 13:54 - END OF NOTE Assessment/Plan (1) Acute cholecystitis Current Visit: Yes Status: Acute Assessment & Plan: -see abdominal pain, plan is for surgical intervention with [place] today Code(s): K81.0 - ACUTE CHOLECYSTITIS (2) Abdominal pain Current Visit: Yes Status: Acute Assessment & Plan: - total Bili elevated @ 4.20 - WBC 14.3 - CBC, CMP daily - LA- WNL - LFT- WNL - Blood cultures x2 - PCT - US of liver and gallbladder - NPO - Zosyn 3.375 Q6 - NS @ 100ml/hr - CT abd/ pelvis 05/16: IMPRESSION: 1. Mixed type III hiatus hernia noted. 2. Fatty liver disease and small right adrenal myelolipoma. 3. Small duodenal diverticulum, sigmoid diverticulosis without diverticulitis, needs clinical correlation and follow up. 4. Tiny right renal cyst. 5. Gall bladder is borderline distended with no pericholecystic fluid, edema or wall thickening, no intraluminal high density stone seen, the appearance may be due to prolonged fasting, if concern for acalcular cholecystitis persist, post prandial followup ultrasound will help in further evaluation. 6. Urinary bladder diverticulum. - Needs US for further evaluation- to be done Thursday - Consider surgical consult 05/17 - WBC, bilirubin, AST and ALT elevated - trend labs - 2LNC for comfort 05/18: -US showing 1. Again abnormal distended gallbladder without gallstones. New borderline wall thickening and pericholecystic fluid. Rule out acalculous cholecystitis. 2. Nonvisualization pancreas. -MRCP pending completion, most likely performed tomorrow -[facility] transfer pending MRCP results, if obstruction identified, transfer for ERCP, otherwise patient a surgical candidate -Hep panel pending -Patient responding to Zosyn, will continue 05/19: -MRCP findings concerning for acute cholecystitis, plan for surgery tomorrow with Dr. Froylan Jimenez, patient to be NPO after midnight -Labs with noted improved TBili near baseline at 3.1 -Continue Zosyn -Hep gonzalez pending Code(s): R10.9 - UNSPECIFIED ABDOMINAL PAIN (3) Hyperbilirubinemia Current Visit: Yes Status: Acute Assessment & Plan: -see abdominal pain -Medication list reviewed -[place] spot negative -EBV/CMV pending -TBili trend 2.6<3.1<5.4<5.70>4.20 -DBili trend 1.9>1.1>0.3 Code(s): E80.6 - OTHER DISORDERS OF BILIRUBIN METABOLISM (4) Chest pain Current Visit: Yes Status: Acute Assessment & Plan: - trop x3 negative - Chest XR: Portable apical lordotic chest now underinflated crowding both lung bases. No focal infiltrate, consolidation, or large effusion. Heart not enlarged with new small hiatal hernia. Bony thorax intact again with osteopenia and mild degenerative changes - no active CP Code(s): R07.9 - CHEST PAIN, UNSPECIFIED (5) Nausea & vomiting Current Visit: Yes Status: Acute Assessment & Plan: -Continue anti-emetics prn Code(s): R11.2 - NAUSEA WITH VOMITING, UNSPECIFIED (6) Hypothyroidism Current Visit: Yes Status: Chronic Assessment & Plan: - Continue Levothyroxine Code(s): E03.9 - HYPOTHYROIDISM, UNSPECIFIED (7) NAFLD (nonalcoholic fatty liver disease) Current Visit: Yes Status: Chronic Assessment & Plan: -Noted, add complexity patient sees Dr. Kay Serna -Patient near baseline labs VTE: scd's D/c plan: Pending MRCP results Next of kin: - [place] [phone]
[2023-05-20] MEDS ORDERED: Zemuron 100 MG/10 ML ONE (06:44)
[2023-05-20] MEDS ORDERED: DIPRIVAN 200 MG/20 ML IV ONE ×2 (06:44→19:11)
[2023-05-20] MEDS ORDERED: Decadron 4 MG INJ ONE (06:44)
[2023-05-20] MEDS ORDERED: Xylocaine-Mpf 2% 5 Ml Vial ONE ×2 (06:44→19:11)
[2023-05-20] MEDS ORDERED: BRIDION 200MG/2ML IV ONE (06:44)
[2023-05-20] MEDS ORDERED: TORAdol 30 mg Injection ONE (06:44)
[2023-05-20] MEDS ORDERED: SUBLIMAZE 100 MCG/2 ML ONE (06:44)
[2023-05-20] MEDS ORDERED: Zofran 4 MG/2 ML VIAL ONE (06:44)
[2023-05-20 06:48] LABS: Slide Review 1 YES
[2023-05-20] MEDS ORDERED: Sensorcaine 0.25% 10 ML ONE (07:01)
[2023-05-20] MEDS ORDERED: Lactated Ringers 1,000 ML IV ONE (07:10)
[2023-05-20] MEDS ORDERED: MEFOXIN 2 GM PREMIX** 2 GM/50 ML ML IV ONE (07:10)
[2023-05-20] MEDS: Lactated Ringers 1,000 ML IV SCH (07:18)
[2023-05-20 07:29] LABS: Cytomegalovirus (CMV) Ab, IgG <0.60 U/mL (0.00-0.59); Cytomegalovirus (CMV) Ab, IgM <30.0 AU/mL (0.0-29.9)
[2023-05-20] MEDS: MORPHINE SULFATE 4 MG INJ IV PRN ×2 (07:43→10:45)
[2023-05-20] MEDS ORDERED: MEFOXIN 2 GM PREMIX** 2 GM/50 ML ML IV SCH (08:00)
[2023-05-20 08:12] LABS: HBsAg Screen Negative (Negative); HCV Ab Non Reactive (Non Reactive); Hep A Ab, IgM Negative (Negative); Hep B Core Ab, IgM Negative (Negative)
[2023-05-20] MEDS: Sodium Chloride 0.9% 1000 ML 1,000 ML IV SCH (08:40)
[2023-05-20] MEDS: POTASSIUM CHLORIDE 20 mEq IN WATER 100ML 100 ML IV SCH ×4 (08:40→15:30)
[2023-05-20] MEDS: ECOTRIN 81 MG PO SCH (09:23)
[2023-05-20] MEDS: SYNTHROID 50 MCG PO SCH (09:23)
[2023-05-20] MEDS: TUCKS TP SCH ×5 (09:23→23:37)
[2023-05-20 15:12] LABS: EBV Ab VCA, IgM <36.0 U/mL (0.0-35.9)
[2023-05-20] MEDS ORDERED: OFIRMEV 100 ML IV ONE (19:13)
[2023-05-20] MEDS ORDERED: DEXTROSE 5% -NACL 0.9% 1000 ML + KCl 20 MEQ 0 ML IV ONE (22:27)
[2023-05-20] MEDS ORDERED: D5W/0.45NS W/ 20mEq KCl 1000 ML 1,000 ML IV SCH (23:45)
[2023-05-21] MEDS: PIPERACILLIN/TAZOBACTAM 3.375 GM in Sodium Chloride 100ML MINI-BAG PLUS 100 ML IV SCH ×2 (00:07→05:04)
[2023-05-21 06:07] LABS: ALBUMIN 2.7 g/dL (3.5-5.0); ALKALINE PHOSPHATASE 126 U/L (38-126); ANION GAP 9.4 MEQ/L (5-15); BLOOD UREA NITROGEN 19 mg/dL (9-20); CHLORIDE 105 mmol/L (98-107); Calcium 7.8 mg/dL (8.4-10.2); Carbon Dioxide 29 mmol/L (22-30); Creatinine 1 0.69 mg/dL (0.66-1.25); EST GLOMERULAR FILTRATION RATE > 60.0 ML/MIN; Glucose 177 mg/dL (74-106); SGOT/AST 57 U/L (17-59); SGPT/ALT 62 U/L (0-50); SODIUM 139 mmol/L (137-145); Total Protein 5.5 g/dL (6.3-8.2)
[2023-05-21 06:16] LABS: Absolute Neutrophil Ct (ANC) 9.27 x10^3/uL (1.4-6.9); BASOPHIL % 0.3 % (0.0-0.4); Basophil (Absolute #) 0.03 x10^3/uL (0-0.4); Eosinophil (Absolute #) 0 x10^3/uL (0-0.5); Hematocrit 35.3 % (42-50); Hemoglobin 12.2 g/dL (12.5-18.0); IMMATURE GRAN # 0.06 x10^3u/L (0.00-0.03); IMMATURE GRAN % 0.6 % (0.00-0.4); Lymphocyte (Absolute #) 0.39 x10^3/uL (1.0-4.6); Lymphocytes % 3.8 % (24.0-44.0); Mean Cell Volume 88.5 fL (78-100); Mean Corpuscular Hemoglobin 30.6 pg (26-32); Mean Corpuscular Hgb Concent. 34.6 g/dL (32-36); Mean Platelet Volume 10.7 fL (7.5-11.0); Monocyte (Absolute #) 0.43 x10^3/uL (0.0-1.3); Monocytes % 4.2 % (0.0-12.0); Neutrophil % 91.1 % (36.0-66.0); Platelet Count 143 x10^3/uL (150-450); Red Blood Count 3.99 x10^6/uL (4.1-5.6); Red Cell Distribution Width 14.5 % (11.5-14.0); White Blood Count 10.2 x10^3/uL (4.0-10.5)
[2023-05-21 07:16] VITALS: RESP 18
[2023-05-21] MEDS: Sodium Chloride 0.9% 1000 ML 1,000 ML IV SCH ×2 (07:26→07:27)
[2023-05-21] MEDS: Lactated Ringers 1,000 ML IV SCH (07:26)
[2023-05-21] MEDS ORDERED: MORPHINE SULFATE 2 MG INJ IV PRN (07:31)
[2023-05-21] MEDS ORDERED: NORCO 5/325 MG PO PRN (07:32)
[2023-05-21] MEDS ORDERED: TYLENOL 325 MG PO PRN (07:35)
[2023-05-21] MEDS ORDERED: FEVERALL 650 MG RC PRN (07:36)
[2023-05-21 07:37] LABS: Slide Review 1 YES
[2023-05-21] MEDS: TUCKS TP SCH ×2 (08:21→09:14)
[2023-05-21] MEDS: SYNTHROID 50 MCG PO SCH (09:14)
[2023-05-21] MEDS ORDERED: ENOXAPARIN SODIUM SQ SCH (10:00)
[2023-05-21 11:19] VITALS: BP 127/68; PULSE 75; TEMP 98.4; O2SAT 90
--- NOTE | 2023-05-21 11:29 | PCM.DS ---
Discharge Summary Date of Admission: 05/17/23 13:13 Date of Discharge: 05/21/23 Admitting Physician: PRIYA HUANG MD Consults: Consults on Case 05/18/23 12:34 Consult Surgery ROUTINE Primary Care Provider: MELANIE BRADY Allergies Allergies No Known Drug Allergies Allergy (Verified 05/16/23 09:22) Hospital Summary - Hospital Course Hospital Course: Mr Reis is a 67 year old male with pmhx of hypothyroidism and fatty liver disease admitted for probable acute cholecystits with worsening hyperbilirubinemia. CT imaging of the abdomen identified a borderline distended GB with no pericholecystic fluid/edema or wall thickening with US imaging suggested. US imaging with re-identified abnormally distended GB without gallstones, now with borderline wall thickening and pericholecystic fluid, suggestion to r/o acalculous cholecystitis. General surgery was consulted with suggestions for transfer to for ERCP consideration/GI consult. [place] ERCP specialist recommending MRCP, which showed an abnormal distended gallbladder with tiny gravel/sludge in the neck of the gallbladder as well as gallbladder wall thickening and tiny perihepatic/pericholecystic free fluid concerning for acute cholecystitis. Lab with noted improvement WBC, now down to 10.2 with the initiation of abx. AST now wnl at 57 ALT now at 62. Total bili at 1.5. Patient reports that he does see GI Kay Serna for his fatty liver disease, was screened in for hepatitis which resulted negative. Denies prior or current use of alcohol. Patient underwent cholecystectomy 05/20/23 and is now medically stable and ready for discharge. Patient will d/c home with HEATHER drain and follow up with Dr. Shakila Jimenez in one week. He will also go home on Augmentin 875mg BID x 7 days and [place] 5/325mg Q4H for pain. Patient is agreeable to plan and ready for discharge. Advised follow up with GI/PCP. Patient also scheduled for sleep study as OP. - Vitals & Intake/Output Vital Signs: Vital Signs Temperature 98.4 F 05/21/23 11:19 Pulse Rate 75 05/21/23 11:19 Respiratory Rate 18 05/21/23 11:19 Blood Pressure 127/68 05/21/23 11:19 O2 Sat by Pulse Oximetry 90 L 05/21/23 11:19 Intake & Output: Intake & Output 05/18/23 05/19/23 05/20/23 05/21/23 11:59 11:59 11:59 11:59 Intake Total 1780 3573 619 2272 Output Total 550 0 230 Balance 1780 3023 619 2042 Weight 89.3 kg 89.3 kg - Lab Result Diagrams: 05/21/23 05:36 05/21/23 05:36 Lab Results-Last 24 Hrs: Lab Results-Last 24 Hours 05/18/23 05/20/23 05/21/23 Range/Units 17:15 22:25 05:36 WBC 10.2 (4.0-10.5) x10^3/uL RBC 3.99 L (4.1-5.6) x10^6/uL Hgb 12.2 L (12.5-18.0) g/dL Hct 35.3 L (42-50) % MCV 88.5 (78-100) fL MCH 30.6 (26-32) pg MCHC 34.6 (32-36) g/dL RDW 14.5 H (11.5-14.0) % Plt Count 143 L (150-450) x10^3/uL MPV 10.7 (7.5-11.0) fL Gran % 91.1 H (36.0-66.0) % Immature Gran % (Auto) 0.6 H (0.00-0.4) % Nucleat RBC Rel Count 0.0 (0.00-0.1) % Eos # (Auto) 0 (0-0.5) x10^3/uL Immature Gran # (Auto) 0.06 H (0.00-0.03) x10^3u/L Absolute Lymphs (auto) 0.39 L (1.0-4.6) x10^3/uL Absolute Monos (auto) 0.43 (0.0-1.3) x10^3/uL Absolute Nucleated RBC 0.00 (0.00-0.01) x10^3u/L Lymphocytes % 3.8 L (24.0-44.0) % Monocytes % 4.2 (0.0-12.0) % Eosinophils % 0.0 (0.00-5.0) % Basophils % 0.3 (0.0-0.4) % Absolute Granulocytes 9.27 H (1.4-6.9) x10^3/uL Basophils # 0.03 (0-0.4) x10^3/uL Sodium (137-145) mmol/L Potassium 3.8 (3.5-5.1) mmol/L Chloride (98-107) mmol/L Carbon Dioxide (22-30) mmol/L Anion Gap (5-15) MEQ/L BUN (9-20) mg/dL Creatinine (0.66-1.25) mg/dL Estimated GFR ML/MIN Glucose (74-106) mg/dL Calcium (8.4-10.2) mg/dL Magnesium (1.6-2.3) mg/dL Total Bilirubin (0.2-1.3) mg/dL AST (17-59) U/L ALT (0-50) U/L Alkaline Phosphatase (38-126) U/L Serum Total Protein (6.3-8.2) g/dL Albumin (3.5-5.0) g/dL EBV Capsid Ag IgG Ab 205.0 H (0.0-17.9) U/mL EBV Capsid Ag IgM Ab <36.0 (0.0-35.9) U/mL EBV Nuclear Ag IgG Ab 186.0 H (0.0-17.9) U/mL EBV Interpretation Comment (.) Slides for Path Review YES 05/21/23 05/21/23 Range/Units 05:36 05:36 WBC (4.0-10.5) x10^3/uL RBC (4.1-5.6) x10^6/uL Hgb (12.5-18.0) g/dL Hct (42-50) % MCV (78-100) fL MCH (26-32) pg MCHC (32-36) g/dL RDW (11.5-14.0) % Plt Count (150-450) x10^3/uL MPV (7.5-11.0) fL Gran % (36.0-66.0) % Immature Gran % (Auto) (0.00-0.4) % Nucleat RBC Rel Count (0.00-0.1) % Eos # (Auto) (0-0.5) x10^3/uL Immature Gran # (Auto) (0.00-0.03) x10^3u/L Absolute Lymphs (auto) (1.0-4.6) x10^3/uL Absolute Monos (auto) (0.0-1.3) x10^3/uL Absolute Nucleated RBC (0.00-0.01) x10^3u/L Lymphocytes % (24.0-44.0) % Monocytes % (0.0-12.0) % Eosinophils % (0.00-5.0) % Basophils % (0.0-0.4) % Absolute Granulocytes (1.4-6.9) x10^3/uL Basophils # (0-0.4) x10^3/uL Sodium 139 (137-145) mmol/L Potassium 4.0 (3.5-5.1) mmol/L Chloride 105 (98-107) mmol/L Carbon Dioxide 29 (22-30) mmol/L Anion Gap 9.4 (5-15) MEQ/L BUN 19 (9-20) mg/dL Creatinine 0.69 (0.66-1.25) mg/dL Estimated GFR > 60.0 ML/MIN Glucose 177 H (74-106) mg/dL Calcium 7.8 L (8.4-10.2) mg/dL Magnesium 2.1 (1.6-2.3) mg/dL Total Bilirubin 1.50 H (0.2-1.3) mg/dL AST 57 (17-59) U/L ALT 62 H (0-50) U/L Alkaline Phosphatase 126 (38-126) U/L Serum Total Protein 5.5 L (6.3-8.2) g/dL Albumin 2.7 L (3.5-5.0) g/dL EBV Capsid Ag IgG Ab (0.0-17.9) U/mL EBV Capsid Ag IgM Ab (0.0-35.9) U/mL EBV Nuclear Ag IgG Ab (0.0-17.9) U/mL EBV Interpretation (.) Slides for Path Review Micro Results-Entire Visit: Microbiology 05/16/23 14:48 Blood Culture - Final Blood 05/16/23 17:14 Blood Culture - Final Blood - Radiology Exams Ordered Rad Exams-Entire Visit: Radiology Procedures Category Date Time Status MRI ABD W/O CONTRAST [MRI] Stat Exams 05/19/23 16:53 Completed - Procedures and Test Procedures and Tests throughout Hospitalization: Therapy Orders & Screens 05/16/23 17:00 Oxygen Nasal Cannula 2 lpm Comment: Diagnosis: abdominal pain 05/20/23 11:50 Incentive Spirometry UD Comment: Diagnosis: ACUTE CHOLECYSTITIS 05/20/23 21:55 BiPap/CPAP ROUTINE Comment: Diagnosis: ACUTE CHOLECYSTITIS Discharge Exam General Appearance: no apparent distress Neurologic Exam: alert, oriented x 3, cooperative Eye Exam: PERRL Ears, Nose, Throat Exam: normal ENT inspection Neck Exam: normal inspection Respiratory Exam: normal breath sounds, lungs clear Cardiovascular Exam: regular rate/rhythm, normal heart sounds Gastrointestinal/Abdomen Exam: tenderness, other (3 visible px sites covered with gauze/tegaderm. HEATHER drain to Right abdomen with sanguineous drainage) Male Genitalia Exam: deferred Skin Exam: other (3 visible px sites covered with gauze/tegaderm. HEATHER drain to Right abdomen with sanguineous drainage) Wound Assessment: Skin/Wound Assessment Wound/Incision Assessment Start: 05/20/23 23:35 Text: Status: Active Freq: Q6H Protocol: Document 05/21/23 08:00 DARNELL (Rec: 05/21/23 08:20 DARNELL [id number]) Wound/Incision Assessment Right Abdomen Wound Assessment Shift Assessment Wound Type Incision Wound Stage Non Pressure Wound Dressing Status Dry & Intact Drainage Amount None Comment 4 PUNCTURE SITES, HEATHER DRAIN IN PLACE Final Diagnosis/Problem List - Final Discharge Diagnosis/Problem (1) Acute cholecystitis Current Visit: Yes Status: Acute Code(s): K81.0 - ACUTE CHOLECYSTITIS (2) Abdominal pain Current Visit: Yes Status: Resolved Code(s): R10.9 - UNSPECIFIED ABDOMINAL PAIN (3) Hyperbilirubinemia Current Visit: Yes Status: Acute Code(s): E80.6 - OTHER DISORDERS OF BILIRUBIN METABOLISM (4) Chest pain Current Visit: Yes Status: Resolved Code(s): R07.9 - CHEST PAIN, UNSPECIFIED (5) Nausea & vomiting Current Visit: Yes Status: Resolved Code(s): R11.2 - NAUSEA WITH VOMITING, UNSPECIFIED (6) Hypothyroidism Current Visit: Yes Status: Chronic Code(s): E03.9 - HYPOTHYROIDISM, UNSPECIFIED (7) NAFLD (nonalcoholic fatty liver disease) Current Visit: Yes Status: Chronic - Discharge Prescriptions: New Hydrocodone/Acetaminophen [Hydrocodone-Acetamin 5-325 mg] 1 each PO Q4H PRN 5 Days #30 tablet MDD 6 PRN Reason: Pain Amox Tr/Potass Clav. 875 mg [Augmentin 875-125 Tablet] 1 each PO BID #14 tablet Continue Tizanidine HCl 4 mg [Zanaflex 4 MG] 4 mg PO DAILY PRN PRN Reason: Pain Aspirin EC 81 mg [Ecotrin 81 mg] 81 mg PO DAILY Levothyroxine Sodium 50 Mcg [Synthroid 50 Mcg] 50 mcg PO DAILY Follow up with: SHAKILA JIMENEZ [ACTIVE STAFF] - MELANIE BRADY NP [Primary Care Provider] - 05/27/23 10:45 am
--- NOTE | 2023-05-22 08:17 | OP ---
SURGERY DATE: 05/21/2023 SURGERY TIME: 1913 PREOPERATIVE DIAGNOSIS: 1. SYMPTOMATIC CHOLELITHIASIS. POSTOPERATIVE DIAGNOSIS: 1. SYMPTOMATIC CHOLELITHIASIS. PROCEDURE: 1. Laparoscopic cholecystectomy. SURGEON: Froylan Jimenez M.D. ANESTHESIA: General endotracheal tube. COMPLICATIONS: None. CONDITION: Stable. INDICATION: Mr. Reis presents with a working diagnosis of acute cholecystitis. He presented with an elevated bilirubin up over 5 and came down to 2.7. I guess he carries a bilirubin of about this generally speaking. There is some suggestion of some distention and some inflammation of the gallbladder. He would like to have his gallbladder removed today. He is quite comfortable with surgery. OPERATIVE PROCEDURE: He was taken to the OR. General anesthetic. Routine prep and drape. Veress needle inserted in right upper quadrant. Insufflated to a pressure of 14. Four 5's initially and the epigastric 5 was changed subsequently to a 12. Gallbladder was large, distended, and had a polka dotted gangrenous pattern, about 50% gangrenous, a little bit more than this on the medial inside edge. There was bile already up there. This was suction irrigated. The epigastric port was changed to a 12 port. An [place]is type grasper was used on the fundus retracted laterally and cephalad. The infundibulum dissected. Cystic duct defined. Cystic artery defined. Cystic artery triply Ligaclipped. Cystic duct taken with the stapling device immediately against the gallbladder edge. Gallbladder rolled out of gallbladder fossa with an endoscopic LigaSure device. The gallbladder was able to be basically torn into 3 pieces and extracted through the 12 port without any further enlargement at all. The field was generously irrigated and suctioned. Surgicel was placed. Some foam was used. 18 HEATHER was placed. The field was really quite dry. The staple line was excellent. Preparation for closure. The epigastric 12 port was closed with hole closure device with 0 Vicryl. Skin closed with karen. Sterile dressing placed. CO2 had been removed. Patient tolerated the procedure satisfactory.
== END 2023-05-21 13:26 | disposition home or self-care (01) | DRG 419 ==
LOC: ED 08:29 → MED SURG 13:59 → OBSVTOIN 05-17 13:13
PROVIDERS: ADMIT Internal Medicine; ATTEND Internal Medicine
PROC: 0FT44ZZ Resection of Gallbladder, Percutaneous Endoscopic Approach (ICD-10-PCS; principal; 2023-05-21)
DX: K81.0 Acute cholecystitis (principal); R10.9 Unspecified abdominal pain; E80.6 Other disorders of bilirubin metabolism; R07.9 Chest pain, unspecified; R11.2 Nausea with vomiting, unspecified; E03.9 Hypothyroidism, unspecified; K76.0 Fatty (change of) liver, not elsewhere classified; K59.00 Constipation, unspecified; Z79.899 Other long term (current) drug therapy; Z20.828 Contact with and (suspected) exposure to other viral communicable diseases
CPT/HCPCS: 00790; 36000; 36415; 47562; 71045; 74177; 74181; 76705; 80053; 80074; 81001; 82150; 82248; 83605; 83690; 83735; 83880; 84132; 84145; 84484; 85025; 85027; 85610; 85730; 86308; 86644; 86645; 86664; 86665; 87040; 93005; 93268; 94002; 94760; 94762; 96374; 96375; 96376; 99285; G0378; Q3014; J0694; J1100; J1170; J1650; J1885; J2270; J2405; J2704; J3010; J3480; A9270-GY